=== PATIENT | male | born 1955 | race Caucasian/White ===

== ENCOUNTER → 2023-04-23 10:28 | Outpatient (REF) | payer OTHER, SELFPAY ==
[2023-04-23 10:44] LABS: % Basophils 0.7 % (0-2); % Eosinophils 1.8 % (0-6); % Immature Granulocytes 0.4 % (0-0.5); % Lymphocytes 16.2 % (20.5-51.1); % Monocytes 9.4 % (1.7-9.3); % Neutrophils 71.5 % (42.2-75.2); Absolute Basophils 0.1 10^3/uL (0-0.2); Absolute Eosinophils 0.1 10^3/uL (0-0.7); Absolute Lymphocytes 1.2 10^3/uL (1.2-3.4); Absolute Monocytes 0.7 10^3/uL (0.1-0.6); Absolute Neutrophils 5.5 10^3/uL (1.4-6.5); Hematocrit 44.6 % (39.0-52.0); Hemoglobin 15.8 g/dL (13.0-18.0); Mean Corp Hgb Conc. 35.4 g/dL (33.0-37.0); Mean Corpuscular Hgb 32.6 pg (27.0-31.0); Mean Platelet Volume 9.2 fL (7.4-10.4); Platelet Count 232 10^3/uL (130-400); Red Blood Cell Count 4.85 10^6/uL (4.70-6.10); Red Cell Dist. Width 11.8 % (11.5-14.5); White Blood Cell Count 7.7 10^3/uL (4.8-10.8)
[2023-04-23 11:27] LABS: ALT (SGPT) 99 U/L (0-50); AST (SGOT) 93 U/L (17-59); Albumin 4.7 g/dl (3.5-5.0); Alkaline Phosphatase 88 U/L (38-126); Blood Urea Nitrogen 12 mg/dl (9-20); Calcium 9.7 mg/dl (8.4-10.2); Carbon Dioxide 28 mmol/L (22-30); Chloride 97 mmol/L (98-107); Glucose 115 mg/dl (70-99); Potassium 3.8 mmol/L (3.5-5.1); Sodium 135 mmol/L (135-145); Total Bilirubin 1.3 mg/dl (0.2-1.3); Total Protein 6.9 g/dl (6.3-8.2); eGFR > 60.00
[2023-04-23 14:27] LABS: LDH 189 U/L (120-246)
== END ==
LOC: OIDL 10:28
PROVIDERS: ATTENDING PHYSICIAN Internal Medicine Hematology & Oncology
DX: C81.94 Hodgkin lymphoma, unspecified, lymph nodes of axilla and upper limb (principal)
CPT/HCPCS: 80053; 83615; 85025

== ENCOUNTER → 2023-07-29 16:13 | Outpatient (REF) | payer OTHER, SELFPAY ==
[2023-07-29 11:19] LABS: % Basophils 0.5 % (0-2); % Eosinophils 1.5 % (0-6); % Immature Granulocytes 0.5 % (0-0.5); % Lymphocytes 16.1 % (20.5-51.1); % Monocytes 10.7 % (1.7-9.3); % Neutrophils 70.7 % (42.2-75.2); Absolute Eosinophils 0.1 10^3/uL (0-0.7); Absolute Lymphocytes 1.2 10^3/uL (1.2-3.4); Absolute Monocytes 0.8 10^3/uL (0.1-0.6); Absolute Neutrophils 5.2 10^3/uL (1.4-6.5); Hematocrit 45.9 % (39.0-52.0); Hemoglobin 15.7 g/dL (13.0-18.0); Mean Corp Hgb Conc. 34.2 g/dL (33.0-37.0); Mean Corpuscular Volume 93.5 fL (80.0-94.0); Mean Platelet Volume 9.1 fL (7.4-10.4); Platelet Count 256 10^3/uL (130-400); Red Blood Cell Count 4.91 10^6/uL (4.70-6.10); Red Cell Dist. Width 12.2 % (11.5-14.5); White Blood Cell Count 7.3 10^3/uL (4.8-10.8)
[2023-07-29 12:10] LABS: ALT (SGPT) 111 U/L (0-50); AST (SGOT) 91 U/L (17-59); Alkaline Phosphatase 88 U/L (38-126); Blood Urea Nitrogen 24 mg/dl (9-20); Calcium 10.3 mg/dl (8.4-10.2); Carbon Dioxide 25 mmol/L (22-30); Chloride 99 mmol/L (98-107); Glucose 111 mg/dl (70-99); Potassium 3.9 mmol/L (3.5-5.1); Sodium 136 mmol/L (135-145); Total Bilirubin 1.2 mg/dl (0.2-1.3); Total Protein 7.4 g/dl (6.3-8.2); eGFR > 60.00
[2023-07-29 12:35] LABS: LDH 186 U/L (120-246)
== END ==
LOC: OIDL 16:13
PROVIDERS: ATTENDING PHYSICIAN Internal Medicine Hematology & Oncology
DX: C81.94 Hodgkin lymphoma, unspecified, lymph nodes of axilla and upper limb (principal)
CPT/HCPCS: 80053; 83615; 85025

== ENCOUNTER 2023-09-13 19:55 | Emergency (ER) | payer OTHER, MEDICARE, SELFPAY ==
[2023-09-13 20:01] VITALS: BP 190/106
[2023-09-13 20:46] LABS: Lactic Acid 2.7 mmol/L (0.7-2.0)
[2023-09-13 20:47] LABS: ALT (SGPT) 45 U/L (0-50); AST (SGOT) 84 U/L (17-59); Albumin 4.5 g/dl (3.5-5.0); Alkaline Phosphatase 85 U/L (38-126); Blood Urea Nitrogen 20 mg/dl (9-20); Calcium 9.2 mg/dl (8.4-10.2); Carbon Dioxide 30 mmol/L (22-30); Chloride 88 mmol/L (98-107); Creatine Phosphokinase 175 U/L (55-170); Glucose 154 mg/dl (70-99); Potassium 3.7 mmol/L (3.5-5.1); Sodium 127 mmol/L (135-145); Total Bilirubin 2.2 mg/dl (0.2-1.3); Total Protein 6.8 g/dl (6.3-8.2); eGFR > 60.00
[2023-09-13 20:58] LABS: % Basophils 0.5 % (0-2); % Eosinophils 2.7 % (0-6); % Immature Granulocytes 0.6 % (0-0.5); % Lymphocytes 17.2 % (20.5-51.1); % Monocytes 17.7 % (1.7-9.3); % Neutrophils 61.3 % (42.2-75.2); Absolute Eosinophils 0.2 10^3/uL (0-0.7); Absolute Immature Granulocytes 0.1 10^3/uL (0-0.05); Absolute Lymphocytes 1.4 10^3/uL (1.2-3.4); Absolute Monocytes 1.4 10^3/uL (0.1-0.6); Hematocrit 40.4 % (39.0-52.0); Hemoglobin 14.6 g/dL (13.0-18.0); Mean Corp Hgb Conc. 36.1 g/dL (33.0-37.0); Mean Corpuscular Hgb 31.9 pg (27.0-31.0); Mean Corpuscular Volume 88.2 fL (80.0-94.0); Nucleated Red Blood Cells % 0 % (-); Red Blood Cell Count 4.58 10^6/uL (4.70-6.10); Red Cell Dist. Width 12.3 % (11.5-14.5); White Blood Cell Count 8.1 10^3/uL (4.8-10.8)
[2023-09-13 21:04] VITALS: BP 160/49; BMI 34.2
[2023-09-13 21:08] LABS: Mean Platelet Volume 10.7 fL (7.4-10.4); Platelet Count 96 10^3/uL (130-400)
[2023-09-13] MEDS: NSS 1000 IV (22:12)
[2023-09-13] MEDS: TYLENOL 500 MG PO (22:13)
[2023-09-13 23:30] VITALS: BP 146/81
[2023-09-13 23:49] LABS: Lactic Acid 1.1 mmol/L (0.7-2.0)
--- NOTE | 2023-09-14 00:06 | ED.GENMED ---
History of Present Illness
General
Chief Complaint: Fever
Source: patient and spouse
Exam Limitations: none
Time Seen by Provider: 09/13/23 21:35
Nursing documentation reviewed up to this point in time: agreed with
History of Present Illness
History of Present Illness:
68-year-old male past medical history of hypertension hyperlipidemia presenting to the emergency department today with concerns of fever lightheadedness after playing music for multiple hours in the sun today had a high temperature at home felt very
sick able to drink fluids but then presented to the ER due to ongoing symptoms. Denies any specific chest pain shortness of breath has had significant improvement of symptoms since arrival to the ER.
Past History
Past History
ED Past Medical History: HTN and Hypercholesterolemia
ED Past Surgical History: Other ([place] teeth)
Social History
Tobacco: Non-smoker
Alcohol: None
Drug: None
Personal:
Living: with family
Employment: Employed
Review of Systems
Review of Systems
Allergies reviewed?: Yes
All Other Systems: ROS reviewed and negative except as documented in HPI and ROS
Phy Exam
Physical Exam
Physical Exam:
GENERAL: Alert , in no apparent distress
EYE: pupils equal and reactive
NECK: Supple, no significant adenopathy.
ENT: face red in color o/p clr, mmm.
CARDIAC: Regular rate and rhythm .
LUNGS: Clear breath sounds bilaterally, no acute respiratory distress, no wheezes/rales/rhonchi
ABDOMEN: Soft, without focal tenderness, no r/g, no cvat
NEUROLOGICAL: Alert and oriented, no focal neuro deficits
SKIN: Warm and dry, skin intact.
MUSCULOSKELETAL: No edema, well perfused.
PSYCH: Normal and appropriate interaction.
Course
Orders/Labs/Results
Orders:
Orders
09/13/23 20:09
Electrocardiogram (*1) Urgent
Reason for Study: Fatigue / Weakness
Cardiology Consult: Indira Colon
09/13/23 20:10
EKG- Treatment ONCE
09/13/23 20:20
CPK [Creatine Phosphokinase] Urgent
Complete Blood Count/With Diff Urgent
Comprehensive Metabolic Panel Urgent
Lactic Acid Urgent
09/13/23 21:41
0.9% Sodium Chloride 1000 ml [Nss] 1,000 ml IV BOLUS
Acetaminophen [Tylenol] 500 mg PO NOW STA
09/13/23 22:31
Vital Signs- Treatment ONCE
Frequency: Once
09/13/23 23:26
Lactic Acid Urgent
09/14/23 00:29
Comprehensive Metabolic Panel Routine
Comment: REDRAW
Abnormal Lab Results
09/13/23
20:20
RBC 4.58 L 10^6/uL
(4.70-6.10)
MCH 31.9 H pg
(27.0-31.0)
Plt Count 96 L 10^3/uL
(130-400)
MPV 10.7 H fL
(7.4-10.4)
Abs Immat Gran (auto) 0.1 H 10^3/uL
(0-0.05)
Absolute Monos (auto) 1.4 H 10^3/uL
(0.1-0.6)
Immature Gran % 0.6 H %
(0-0.5)
Lymphocytes % 17.2 L %
(20.5-51.1)
Monocytes % 17.7 H %
(1.7-9.3)
Sodium 127 L mmol/L
(135-145)
Chloride 88 L mmol/L
(98-107)
Glucose 154 H mg/dl
(70-99)
Lactic Acid 2.7 H mmol/L
(0.7-2.0)
Total Bilirubin 2.2 H mg/dl
(0.2-1.3)
AST 84 H U/L
(17-59)
Creatine Kinase 175 H U/L
(55-170)
09/13/23 20:20
Vital Signs
Initial and Last Documented VS:
Initial Vital Signs
Temp Pulse Resp BP Pulse Ox
103.2 F H 103 20 190/106 97
09/13/23 20:01 09/13/23 20:01 09/13/23 20:01 09/13/23 20:01 09/13/23 20:01
Last Documented Vital Signs
Temp Pulse Resp BP Pulse Ox
100.3 F 82 18 146/81 100
09/13/23 23:30 09/13/23 23:30 09/13/23 23:30 09/13/23 23:30 09/13/23 23:30
MDM/Problems Addressed
MDM/Problems Addressed:
68-year-old male presenting to the emergency department today with concerns of hypothermia at home. Improving here. This was after being outside for multiple hours with lack of significant hydration. Eventually consistent with heat related
illness. Started on IV fluids here was found to have elevated BUN to creatinine ratio as well as a low sodium level. Unable to repeat the labs multiple hemolyzed samples at the lab. Lactic acid improved. Patient lives that symptoms are fully
resolved and temperature is now normal patient has a normal heart rate. Considering this patient does not appear to be significantly improved from previous he related illness. Patient does appear stable for discharge patient was advised for very
close follow-up for repeated sodium level return precautions were given.
*Critical Care Note
Total Time (30-74mins, 75-104mins- exclusive of procedures): Not Applicable
ED Attending Note
-
Portions of this chart may have been created with voice recognition software.� Occasional wrong word or��sound alike� substitutions may have occurred due to the inherent limitations of voice recognition software.
Discharge Plan
Departure
Patient Disposition: Home (Routine Discharge)
Date of Disposition: 09/14/23
Time of Disposition: 00:53
Patient with high blood pressure during this ER visit?: No
Condition: Good
Covid-19: Not Applicable
Discharge Problem:
Acute hyponatremia, Hyperthermia
Instructions: Heat Exhaustion and Heat Stroke (DC)
Prescriptions:
No Action
atorvastatin 20 mg Tablet
20 mg PO DAILY
labetalol 100 mg Tablet
100 mg PO DAILY
multivitamin Tablet
1 tab PO DAILY
acidophilus-pectin, citrus [Acidophilus Probiotic] 100 million cell-10 mg Capsule
1 cap PO DAILY
Referrals:
Emy Galicia, DO [Family Provider] -
Activity Restrictions/Additional Instructions:
You came to the emergency department today with concerns of elevated temperature and additional symptoms. This was likely heat related illness that seemed to resolve here in the ER with IV fluids and time. You additionally found to a low sodium
level a low chloride level and slightly low platelet count 96. It is important to follow-up for repeated labs to ensure this is not chronic. Please follow close with the primary care doctor within 1 to 2 weeks. Return to the emergency department
for any worsening, new or concerning symptoms.
Interventions
Interventions:
*Risk Screen - Suicide Last Done: 09/13/23 20:01
*General Assessment Last Done: 09/13/23 20:01
*Neglect/Abuse Screening Last Done: 09/13/23 20:01
ED- Fall Risk Assessment Last Done: 09/13/23 20:01
*ED COVID-19 Vaccine History Last Done: 09/13/23 20:01
ED- Neurological Assessment Last Done: 09/13/23 21:05
ED-Skin Assessment Last Done: 09/13/23 21:05
Discharge Date and Time
Print Language: PASHTO
== END 2023-09-14 01:12 | disposition home or self-care (01) ==
LOC: EMR 19:55
PROVIDERS: Physician Assistant; Student in an Organized Health Care Education/Training Program; EMERGENCY PHYSICIAN Student in an Organized Health Care Education/Training Program; FAMILY PHYSICIAN Family Medicine
DX: R50.9 Fever, unspecified (principal); R42 Dizziness and giddiness; R53.1 Weakness; E87.1 Hypo-osmolality and hyponatremia; R53.83 Other fatigue; R94.4 Abnormal results of kidney function studies; T73.2XXA Exhaustion due to exposure, initial encounter; X32.XXXA Exposure to sunlight, initial encounter; I10 Essential (primary) hypertension; E78.00 Pure hypercholesterolemia, unspecified; R01.1 Cardiac murmur, unspecified; M19.90 Unspecified osteoarthritis, unspecified site; Z85.71 Personal history of Hodgkin lymphoma
CPT/HCPCS: 99284; 96360; 80053; 82550; 83605; 85025; 93005

== ENCOUNTER 2023-09-18 12:08 | Inpatient (IN) | payer OTHER, MEDICARE, SELFPAY ==
[2023-09-18] VITALS (9 sets, daily range): BP systolic 89–166; BP diastolic 56–103; BMI 34.8
--- NOTE | 2023-09-18 09:45 | ED.GENMED ---
History of Present Illness
<Shanell Hurtado PA-C - Last Filed: 09/18/23 16:14>
General
Chief Complaint: Fever
Source: patient
Exam Limitations: none
Time Seen by Provider: 09/18/23 09:31
Nursing documentation reviewed up to this point in time: agreed with
History of Present Illness
History of Present Illness:
68 y/o M
h/o HTN, HLD, hodgkins lymphoma
here with fever x 5 days
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
he was thought to have heat exhaustion
pt was also hyponatremic 127
he was hydrated and improved
went home and about 1 hour later developed temp 105.
he has been using tylemol every6 hours during the ay for fevers
he has no other symptoms of headache, rash, neck stiffness,cough, cp, sob, abdominal pain, nausea, vomiting, diarrhea,
but he did notice blood tinged urine
no rectal pain/pressure
no h/o prostate infection
last fever this am, took tylenl 8 am 500 mg
Past History
<Shanell Hurtado PA-C - Last Filed: 09/18/23 16:14>
Past History
ED Past Medical History: HTN and Hypercholesterolemia
ED Past Surgical History: Other ([place] teeth)
Social History
Tobacco: Non-smoker
Alcohol: None
Drug: None
Personal:
Living: with family
Employment: Employed
Phy Exam
<Shanell Hurtado PA-C - Last Filed: 09/18/23 16:14>
Physical Exam
Physical Exam:
GENERAL: Alert ,, nontoxic-appearing but profusely diaphoretic
HEAD: NCAT
EYE: pupils equal and reactive, no nystagmus, minimal photophobia
NECK: Supple,full rom, nontender
ENT: o/p clr, mmm.
CARDIAC: Regular rate and rhythm . no edema
LUNGS: Clear breath sounds bilaterally, no acute respiratory distress, no wheezes/rales/rhonchi
ABDOMEN: Soft, without focal tenderness, no r/g, no cvat
NEUROLOGICAL: Alert and orientedx 4, cn intact, no facial asymmetry, 5/5 strength in UE/LE, sensation intact, romberg neg,
SKIN: Warm, diaphoretic
MUSCULOSKELETAL: No edema, well perfused.
PSYCH: Normal and appropriate interaction.
Course
<Shanell Hurtado PA-C - Last Filed: 09/18/23 16:14>
Orders/Labs/Results
Orders:
Orders
09/18/23 09:32
Electrocardiogram (*1) Urgent
Reason for Study: Other
Other Reason for Exam: sepsis
Cardiac Monitoring- Treatment ONCE
EKG- Treatment ONCE
0.9% Sodium Chloride 1000 ml [Nss] 1,000 ml IV BOLUS
09/18/23 09:42
Acetaminophen [Tylenol] 500 mg PO NOW STA
CR Chest - 2 Views Urgent
Comment:
Reason For Exam: fever x 5 days
09/18/23 09:52
COVID-19 Antigen Urgent
Source: Nasal Swab
Complete Blood Count/With Diff Urgent
Comprehensive Metabolic Panel Urgent
Lactic Acid Q4H
Comment: CANCEL 2nd LACTIC ACID IF 1st LACTIC ACID IS LESS THAN 2
Lipase Urgent
Manual Differential Urgent
Serum Osmolality Urgent
Blood Culture Urgent
AMELIA Source: Blood/Venous
Specimen Description:
Influenza A+B Rapid Molecular Urgent
AMELIA Source: Nasal Swab
Specimen Description:
09/18/23 Lunch
Regular
At Your Request: Full Participation
Does patient need a safe tray?: No
09/18/23 11:03
Add On- LAB Urgent
Tests Added?: serum osmolality
09/18/23 11:04
Piperacillin/Tazo 4.5 Gram [Zosyn] 4.5 gram in 100 ml IV NOW
09/18/23 11:40
Admit/Transfer Patient As Directed
Co-Sign Provider:
Level of Care: Inpatient admission
Assign to:: Telemetry
Physician / Group: errol garcia
Diagnosis: Sepsis
Reason for Telemetry: Other
Other Reason for Telemetry: Sepsis
Date to Stop Telemetry: 09/20/23
Time to Stop Telemetry: 11:00
Reason for Hospitalization: Sepsis
Expected length of stay greater than two midnights?: Yes
ELOS- Estimated Length of Stay in days: 2
I certify the patient meets the requirements for IP care: Yes
PRN Pain Medication Management As Directed
May give lesser potent ordered pain med per pt: Yes
preference::
Protocol:: Medication orders for pain may be administered in a
manner that supports deferring to patient preference
when the pt is:
- Requesting an ordered lesser potent pain medication.
Least to most potent pain medications are defined
as: acetaminophen < NSAID < tramadol < opioids
(morphine, oxycodone, hydromorphone).
- Requesting a lesser dose of the same medication IF
ORDERED.
- Requesting a less intrusive route of administration
if both routes are prescribed by the provider (PO <
IV).
09/18/23 11:42
Code Status As Directed
Resuscitation Status: Full Code
09/18/23 12:46
Osmolality, Random Urine Urgent
Date Specimen was Collected: 09/18/23
Time Specimen was Collected: 11:11
Urinalysis Reflex To Culture Urgent
Date Specimen was Collected: 09/18/23
Time Specimen was Collected: 11:11
Urine Microscopic Reflex Cult Urgent
Urine Sodium Urgent
Date Specimen was Collected: 09/18/23
Time Specimen was Collected: 11:11
Urine Culture Urgent
AMELIA Source: U
Specimen Description:
Date Specimen was Collected: 09/18/23
Time Specimen was Collected: 11:11
09/18/23 13:45
Lactic Acid Q4H
Comment: CANCEL 2nd LACTIC ACID IF 1st LACTIC ACID IS LESS THAN 2
09/18/23 13:51
Acetaminophen [Tylenol] 500 mg PO Q8HPRN PRN
Bisacodyl [Dulcolax] 10 mg RECTAL [id number] PRN
Docusate W/Senna [Senokot-S] 1 tablet PO BIDPRN PRN
Polyethylene Glycol Powder [Miralax] 17 grams PO DAILYPRN PRN
09/18/23 13:51
INFECTIOUS DISEASE CONSULT Routine
Consulting Provider: Ryan Stover
Was physician already notified: Yes
Reason for consult: Fever, unclear source
NEPHROLOGY CONSULT Routine
Consulting Provider: Moncho Field
Was physician already notified: Yes
Reason for consult: Hyponatremia
Activity As Directed
Activity Level: Out of Bed-Early Mobility
Vital Signs As Directed
Frequency: Per unit guidelines
DX Deep Vein Thrombosis Video Routine
09/18/23 18:00
Enoxaparin Sodium [Lovenox] 40 mg SC QPM
09/18/23 20:00
Piperacillin/Tazo 3.375 Gram [Zosyn] 3.375 gram in 50 ml IV Q6H
09/19/23 06:00
Basic Metabolic Panel IN AM
Complete Blood Count/No Diff IN AM
09/19/23 08:00
Labetalol [Trandate] 100 mg PO DAILY
Lisinopril [Zestril] 20 mg PO DAILY
09/20/23 11:00
DC Protocol for Telemetry ONCE
Abnormal Lab Results
09/18/23
09:52
RBC 4.14 L 10^6/uL
(4.70-6.10)
Hct 35.6 L %
(39.0-52.0)
MCH 31.6 H pg
(27.0-31.0)
Plt Count 61 L D 10^3/uL
(130-400)
Band Neutrophils 14 H %
(0-3)
Lymphocytes (Manual) 14 L %
(20-51)
Monocytes (Manual) 18 H %
(2-9)
Sodium 119 L* mmol/L
(135-145)
Potassium 3.2 L mmol/L
(3.5-5.1)
Chloride 81 L mmol/L
(98-107)
Carbon Dioxide 33 H mmol/L
(22-30)
BUN 23 H mg/dl
(9-20)
Glucose 151 H mg/dl
(70-99)
Serum Osmolality 256 L mOsm/kg
(275-300)
Calcium 8.2 L mg/dl
(8.4-10.2)
Total Bilirubin 3.3 H mg/dl
(0.2-1.3)
AST 93 H U/L
(17-59)
Total Protein 5.5 L g/dl
(6.3-8.2)
Albumin 3.2 L g/dl
(3.5-5.0)
09/18/23 09:52
09/18/23 09:52
Vital Signs
Initial and Last Documented VS:
Initial Vital Signs
Temp Pulse Resp BP Pulse Ox
102.6 F H 107 22 89/56 96
09/18/23 09:25 09/18/23 09:25 09/18/23 09:25 09/18/23 09:25 09/18/23 09:25
Last Documented Vital Signs
Temp Pulse Resp BP Pulse Ox
98.0 F 82 18 143/103 100
09/18/23 15:13 09/18/23 15:13 09/18/23 15:13 09/18/23 15:13 09/18/23 15:13
<Leroy Howard, DO - Last Filed: 09/18/23 11:07>
Orders/Labs/Results
Orders:
Orders
09/18/23 09:32
Electrocardiogram (*1) Urgent
Reason for Study: Other
Other Reason for Exam: sepsis
Cardiac Monitoring- Treatment ONCE
EKG- Treatment ONCE
0.9% Sodium Chloride 1000 ml [Nss] 1,000 ml IV BOLUS
09/18/23 09:42
Acetaminophen [Tylenol] 500 mg PO NOW STA
CR Chest - 2 Views Urgent
Comment:
Reason For Exam: fever x 5 days
09/18/23 09:52
COVID-19 Antigen Urgent
Source: Nasal Swab
Complete Blood Count/With Diff Urgent
Comprehensive Metabolic Panel Urgent
Lactic Acid Q4H
Comment: CANCEL 2nd LACTIC ACID IF 1st LACTIC ACID IS LESS THAN 2
Lipase Urgent
Manual Differential Urgent
Serum Osmolality Urgent
Blood Culture Urgent
AMELIA Source: Blood/Venous
Specimen Description:
Influenza A+B Rapid Molecular Urgent
AMELIA Source: Nasal Swab
Specimen Description:
09/18/23 Lunch
Regular
At Your Request: Full Participation
Does patient need a safe tray?: No
09/18/23 11:03
Add On- LAB Urgent
Tests Added?: serum osmolality
09/18/23 11:04
Piperacillin/Tazo 4.5 Gram [Zosyn] 4.5 gram in 100 ml IV NOW
09/18/23 11:40
Admit/Transfer Patient As Directed
Co-Sign Provider:
Level of Care: Inpatient admission
Assign to:: Telemetry
Physician / Group: errol garcia
Diagnosis: Sepsis
Reason for Telemetry: Other
Other Reason for Telemetry: Sepsis
Date to Stop Telemetry: 09/20/23
Time to Stop Telemetry: 11:00
Reason for Hospitalization: Sepsis
Expected length of stay greater than two midnights?: Yes
ELOS- Estimated Length of Stay in days: 2
I certify the patient meets the requirements for IP care: Yes
PRN Pain Medication Management As Directed
May give lesser potent ordered pain med per pt: Yes
preference::
Protocol:: Medication orders for pain may be administered in a
manner that supports deferring to patient preference
when the pt is:
- Requesting an ordered lesser potent pain medication.
Least to most potent pain medications are defined
as: acetaminophen < NSAID < tramadol < opioids
(morphine, oxycodone, hydromorphone).
- Requesting a lesser dose of the same medication IF
ORDERED.
- Requesting a less intrusive route of administration
if both routes are prescribed by the provider (PO <
IV).
09/18/23 11:42
Code Status As Directed
Resuscitation Status: Full Code
09/18/23 12:46
Osmolality, Random Urine Urgent
Date Specimen was Collected: 09/18/23
Time Specimen was Collected: 11:11
Urinalysis Reflex To Culture Urgent
Date Specimen was Collected: 09/18/23
Time Specimen was Collected: 11:11
Urine Microscopic Reflex Cult Urgent
Urine Sodium Urgent
Date Specimen was Collected: 09/18/23
Time Specimen was Collected: 11:11
Urine Culture Urgent
AMELIA Source: U
Specimen Description:
Date Specimen was Collected: 09/18/23
Time Specimen was Collected: 11:11
09/18/23 13:45
Lactic Acid Q4H
Comment: CANCEL 2nd LACTIC ACID IF 1st LACTIC ACID IS LESS THAN 2
09/18/23 13:51
Acetaminophen [Tylenol] 500 mg PO Q8HPRN PRN
Bisacodyl [Dulcolax] 10 mg RECTAL [id number] PRN
Docusate W/Senna [Senokot-S] 1 tablet PO BIDPRN PRN
Polyethylene Glycol Powder [Miralax] 17 grams PO DAILYPRN PRN
09/18/23 13:51
INFECTIOUS DISEASE CONSULT Routine
Consulting Provider: Ryan Stover
Was physician already notified: Yes
Reason for consult: Fever, unclear source
NEPHROLOGY CONSULT Routine
Consulting Provider: Moncho Field
Was physician already notified: Yes
Reason for consult: Hyponatremia
Activity As Directed
Activity Level: Out of Bed-Early Mobility
Vital Signs As Directed
Frequency: Per unit guidelines
DX Deep Vein Thrombosis Video Routine
09/18/23 18:00
Enoxaparin Sodium [Lovenox] 40 mg SC QPM
09/18/23 20:00
Piperacillin/Tazo 3.375 Gram [Zosyn] 3.375 gram in 50 ml IV Q6H
09/19/23 06:00
Basic Metabolic Panel IN AM
Complete Blood Count/No Diff IN AM
09/19/23 08:00
Labetalol [Trandate] 100 mg PO DAILY
Lisinopril [Zestril] 20 mg PO DAILY
09/20/23 11:00
DC Protocol for Telemetry ONCE
Abnormal Lab Results
09/18/23
09:52
RBC 4.14 L 10^6/uL
(4.70-6.10)
Hct 35.6 L %
(39.0-52.0)
MCH 31.6 H pg
(27.0-31.0)
Plt Count 61 L D 10^3/uL
(130-400)
Band Neutrophils 14 H %
(0-3)
Lymphocytes (Manual) 14 L %
(20-51)
Monocytes (Manual) 18 H %
(2-9)
Sodium 119 L* mmol/L
(135-145)
Potassium 3.2 L mmol/L
(3.5-5.1)
Chloride 81 L mmol/L
(98-107)
Carbon Dioxide 33 H mmol/L
(22-30)
BUN 23 H mg/dl
(9-20)
Glucose 151 H mg/dl
(70-99)
Serum Osmolality 256 L mOsm/kg
(275-300)
Calcium 8.2 L mg/dl
(8.4-10.2)
Total Bilirubin 3.3 H mg/dl
(0.2-1.3)
AST 93 H U/L
(17-59)
Total Protein 5.5 L g/dl
(6.3-8.2)
Albumin 3.2 L g/dl
(3.5-5.0)
09/18/23 09:52
09/18/23 09:52
Vital Signs
Initial and Last Documented VS:
Initial Vital Signs
Temp Pulse Resp BP Pulse Ox
102.6 F H 107 22 89/56 96
09/18/23 09:25 09/18/23 09:25 09/18/23 09:25 09/18/23 09:25 09/18/23 09:25
Last Documented Vital Signs
Temp Pulse Resp BP Pulse Ox
98.0 F 82 18 143/103 100
09/18/23 15:13 09/18/23 15:13 09/18/23 15:13 09/18/23 15:13 09/18/23 15:13
<Shanell Hurtado PA-C - Last Filed: 09/18/23 16:14>
MDM/Problems Addressed
Differential Diagnosis Includes:
sepsis, fever, hyponbatremia, uti, hematuria
MDM/Problems Addressed:
alexy younger jr, htn (hctz), hld, hodgkins in remission
fever x 5 days, no other sypmtoms (maybe some painless hematuria reported at home)
seen 5 days ago for suspected heat exhaustion before fever started, sodium 127 then;
was initially hypotensive in traige but has been 110/60 here, febrile; unclear source; getting abd US for elev bili (no belly pain) and ua; empiric zosyn after ua;
sodium 119; dr. field aware; will see pt to make rec for hyponatremai
<Shanell Hurtado PA-C - Last Filed: 09/18/23 16:14>
*Critical Care Note
Total Time (30-74mins, 75-104mins- exclusive of procedures): Not Applicable
ED Attending Note
<Shanell Hurtado PA-C - Last Filed: 09/18/23 16:14>
-
Portions of this chart may have been created with voice recognition software.� Occasional wrong word or��sound alike� substitutions may have occurred due to the inherent limitations of voice recognition software.
<Leroy Howard, - Last Filed: 09/18/23 11:07>
ED Attending Note
Patient seen and examined by attending physician: Yes
ED Attending Note:
I have reviewed and agree with history and treatment plan by Zeynep Hurtado. My exam revealed
Physical Exam
General: Temperature 102.6
Neck: supple. no meningeal signs. normal posterior pharynx
Heart: s1/s2 regular rate and rhythm, no murmur. equal radial
pulses.
HEENT: Pupils equal round reactive to light, EOMI, sclera anicteric
Lungs: no acute respiratory distress. clear bilaterally
Abdomen: normal bowel sounds. not tender. no CVAT
Neuro: alert and oriented. no focal neurological deficits cranial nerves II through XII intact
Skin: no rash
Psychiatric: well kept. interactive and cooperative
Extremities: no edema. no calf tenderness. negative homans. good distal pulses
68-year-old male with fever, hyperbilirubinemia, hyponatremia. Unclear etiology. Ultrasound pending. Will admit to hospitalist, and give empiric dose of Zosyn.
Discharge Plan
Departure
Patient Disposition: Admit
Date of Disposition: 09/18/23
Time of Disposition: 11:03
Admit to: Telemetry
Presentation/result/management discussed w/ accepting MD/DO: Hospitalist
Condition: Fair
Covid-19: Negative COVID-19
Discharge Problem:
Acute hyponatremia, Sepsis
Interventions
Interventions:
*Risk Screen - Suicide Last Done: 09/18/23 14:20
*General Assessment Last Done: 09/18/23 09:25
*Neglect/Abuse Screening Last Done: 09/18/23 09:25
ED- Fall Risk Assessment Last Done: 09/18/23 13:58
*ED COVID-19 Vaccine History Last Done: 09/18/23 14:20
*Nursing Disposition Last Done: 09/18/23 13:58
ED- Neurological Assessment Last Done: 09/18/23 10:39
ED-Skin Assessment Last Done: 09/18/23 10:40
Discharge Date and Time
Discharge Date/Time: 09/18/23 13:59
[2023-09-18] MEDS: TYLENOL 500 MG PO ×2 (09:57→15:36)
[2023-09-18 10:19] LABS: Lactic Acid 1.9 mmol/L (0.7-2.0)
[2023-09-18] MEDS: NSS 1000 IV (10:20)
[2023-09-18 10:21] LABS: Hematocrit 35.6 % (39.0-52.0); Hemoglobin 13.1 g/dL (13.0-18.0); Mean Corp Hgb Conc. 36.8 g/dL (33.0-37.0); Mean Corpuscular Hgb 31.6 pg (27.0-31.0); Red Blood Cell Count 4.14 10^6/uL (4.70-6.10); Red Cell Dist. Width 13.3 % (11.5-14.5); White Blood Cell Count 6.6 10^3/uL (4.8-10.8)
[2023-09-18 10:35] LABS: ALT (SGPT) 38 U/L (0-50); AST (SGOT) 93 U/L (17-59); Albumin 3.2 g/dl (3.5-5.0); Alkaline Phosphatase 72 U/L (38-126); Blood Urea Nitrogen 23 mg/dl (9-20); Calcium 8.2 mg/dl (8.4-10.2); Carbon Dioxide 33 mmol/L (22-30); Chloride 81 mmol/L (98-107); Estimated Creatinine Clearance 118 ml/min; Glucose 151 mg/dl (70-99); Lipase 51 U/L (23-300); Potassium 3.2 mmol/L (3.5-5.1); Sodium 119 mmol/L (135-145); Total Bilirubin 3.3 mg/dl (0.2-1.3); Total Protein 5.5 g/dl (6.3-8.2); eGFR > 60.00
[2023-09-18 10:41] LABS: COVID-19 Antigen Negative (Negative)
[2023-09-18 11:39] LABS: Platelet Count 61 10^3/uL (130-400)
[2023-09-18 11:40] LABS: Absolute Neutrophils -Man Diff 4.4 10^3/uL (1.4-6.5); Band Neutrophils 14 % (0-3); Lymphocytes 14 % (20-51); Monocytes 18 % (2-9); Normal RBC Morphology Yes; Platelets Checked Yes; Segmented Neutrophils 54 % (42-75); Total Cells Counted 100
--- NOTE | 2023-09-18 11:53 | HPS.HSE ---
Family Physician
-
Family Physician: Emy Galicia
Chief Complaint
-
Fever
History of Present Illness
Patient is a pleasant 68 years old with history of Hodgkin lymphoma, hypertension, hyperlipidemia who came to the ER with persistent fever, patient was seen here 5 days ago and he had fever but believed to have heat exhaustion, sodium level was 127
back on September 12, presented today with persistent fever, found to have sodium level of 119.
Patient seen and examined at bedside, denies any chest pain or shortness of breath, no coughing, no abdominal pain, no nausea, no vomiting, no diarrhea or constipation.
Patient with history of Lymphocyte predominant Hodgkin lymphoma currently on remission, not currently on any treatment, last PET scan 1 year ago was normal.
Patient found to have elevated bilirubin, ultrasound abdomen pending.
Patient be admitted under hospitalist service
Medical History
Past Medical History
Past Medical History: Reports Cancer, HTN and Hypercholesterolemia
Past Surgical History: Reports Other ([place] teeth)
Social History
Tobacco: Non-smoker
Alcohol: Occasional (1 glass wine with dinner)
Personal:
Living: With Family ( Sulema)
Employment: Employed
Family History
Family History: Not pertinent
Allergies / Home Medications
Allergies reflects when Allergies were last updated in [email or web address].
Home Medications with original date entered in [email or web address]
Allergy/Medication List:
Allergies
Allergy/AdvReac Type Severity Reaction Status Date / Time
No Known Allergies Allergy Unverified 09/15/21 14:58
Home Medications
atorvastatin 20 mg tablet 20 mg PO DAILY 09/15/21
hydrochlorothiazide 25 mg tablet 25 mg PO DAILY 09/15/21
labetalol 100 mg tablet 100 mg PO DAILY 09/15/21
lisinopril 20 mg tablet 20 mg PO DAILY 09/15/21
Review of Systems
-
A 12 point ROS was completed and negative except as noted: Yes
Constitutional: Reports Fever; Denies Weight Gain, Weight Loss, Fatigue or Sleep Disturbance
EENT: Denies Tearing, Sore Throat, Mouth Pain, Mouth Swelling or Runny Nose
Respiratory: Denies Cough, Hemoptysis or Trouble Breathing
Cardiac: Denies Chest Pain, Diaphoresis, Palpitations or Syncope
Abdomen/GI: Denies Abdominal Pain, Nausea, Vomiting, Diarrhea, Constipated, Bloody Stools or Black Stools
: Reports Bleeding (Hematuria-pink urine); Denies Dysuria, Frequency, Flank Pain, Incontinence, Difficulty Voiding, Urgency or Dark Urine
Musculoskeletal: Denies Joint Pain, Joint Swelling, Muscle Pain, Muscle Stiffness or Edema
Skin: Denies Itching or Rash
Neurological: Denies Dizzy, Headache, Weakness or Numbness
Endocrine: Denies Polyuria, Polydipsia or Temp Intolerance
Hematologic/Lymphatic: Denies Bleeding, Swollen Glands or Bruising
Psych: Reports Calm; Denies Depression, Anxiety or Panic Disorder
Physical Exam
Vital Signs
Vital Signs
Temp Pulse Resp BP Pulse Ox
102.6 F H 85 25 110/69 96
09/18/23 09:25 09/18/23 10:00 09/18/23 10:00 09/18/23 10:11 09/18/23 10:11
Physical Exam
General: Well Developed, Well Nourished, No Apparent Distress, Comfortable and Good Appetite; No Pain, Chills or Sweats
HEENT: NormoCephalic, Moist mucous membranes, Atraumatic, Good Dentition, PERRLA, Nose Appears Normal and Ears Appear Normal
Respiratory: Clear
Cardiac: S1/S2 and Regular Rhythm
Breast: Deferred by me
GI: Soft, Non Tender, Non Distended and Normal Bowel Sounds
Genito-urinary: Deferred by me
Musculoskeletal: No Clubbing, No Cyanosis and No Edema
Skin: Warm; No Rash, Jaundice, Ulcers, Lesions or Decubitus Ulcers
Neuro: Awake, Alert, Oriented, AO x 3, No Motor Deficits, Nonfocal/grossly intact and Cranial Nerves Intact
Hematologic/Lymphatic: No Lymphadenopathy
Psych: Calm
Laboratory Results
-
09/18/23 09:52
09/18/23 09:52
Laboratory Results
Lactic Acid 1.9 mmol/L (0.7-2.0) 09/18/23 09:52
Total Bilirubin 3.3 mg/dl (0.2-1.3) H 09/18/23 09:52
AST 93 U/L (17-59) H 09/18/23 09:52
ALT 38 U/L (0-50) 09/18/23 09:52
Alkaline Phosphatase 72 U/L (38-126) 09/18/23 09:52
Lipase 51 U/L (23-300) 09/18/23 09:52
Data Reviewed
-
Diagnostic Radiology: Report Reviewed by me
CT Scan: Report Reviewed by me
Medical Tests (Nuc Med, Echo, EKG etc): Report Reviewed by me
Lab Data: Labs Reviewed by me
Old Records: Reviewed
Impression/Plan
-
IMPRESSION:
68 years old male with history of Hodgkin lymphoma, hypertension, hyperlipidemia came with fever and hyponatremia, sodium level 119, infectious disease and nephrology consulted.
PLAN:
Hyponatremia.
Possible secondary to polydipsia after heat exposure.
Sodium level was 127 on September 12
Currently sodium level 119.
Nephrology consulted.
Serial BMP
Pending urine studies
Fever.
Unclear source.
Blood culture pending.
Started on Zosyn in the ER, will continue.
Infectious disease consult.
history of Lymphocyte predominant Hodgkin lymphoma
Diagnosed on August 2021- (patient admitted back then with empyema, gram-negative bacteremia ,diffuse lymphadenopathy and splenomegaly)
Currently on remission, not currently on any treatment.
Follows oncology as outpatient.
History of hypertension
Continue home meds
Hold hydrochlorothiazide
Hyperlipidemia.
Hold statin
CODE STATUS: Full code
DVT prophylaxis: Lovenox
Diet: Regular diet
--- NOTE | 2023-09-18 12:25 | W.CON.NEPH ---
Consultation
-
Date/Time Consultation Requested: September 18, 2023 12 PM
Date/Time Consultation Performed: September 18, 2023 12 PM
Requesting Provider: Dr. Mullen
Performing Provider: Dr. Da Silva
Reason for Consultation: Hyponatremia
Medical History
-
Chief Complaint: Fever
History of Present Illness:
This is a 68-year-old gentleman who has hypertension on a multidrug regimen including thiazide diuretics, hyperlipidemia on statin therapy, both these issues have been well-controlled and stable over time. He also has a history of Hodgkin's
lymphoma which was diagnosed a few years ago he underwent R-CHOP and is currently in remission. His last PET scan was October of last year. In the last 5 days he had been out in the heat playing in a band and had suffered some degree of heatstroke.
He had been to the emergency room on 12 September and was noted to have mild hyponatremia 127 at that time. He was given some fluids and then released. At home he subsequently developed fevers as high as 105. He also has chills and sweats. He began
developing significant malaise and sleeping quite a bit. His oral intake has dropped down to 25% but he remained with good fluid intake at least 64 ounces per day. He also maintain his outpatient medications. Ultimately came back to the emergency
room because he was not getting any better. Here he was noted to have a sodium level of 119. His bilirubin was also noted to be elevated at 3.3. His liver tests have also been noted to be elevated since January of last year.
Past Medical History
Hodgkin's lymphoma, status post R-CHOP. No radiation
Hypertension
Hyperlipidemia
[place] teeth extraction
Social History
Tobacco: Non-Smoker
Alcohol: Occasional
Family History
Family History: Not Pertinent
Allergies / Home Medications
Allergy/AdvReac Type Severity Reaction Status Date / Time
No Known Allergies Allergy Verified 09/18/23 09:29
�Medication �Instructions �Recorded �Confirmed �Type
atorvastatin 20 mg tablet 20 mg PO DAILY High cholesterol 09/15/21 09/18/23 History
labetalol 100 mg tablet 100 mg PO DAILY Blood pressure 09/15/21 09/18/23 History
acetaminophen 500 mg tablet 500 mg PO Q8HPRN PRN mild pain 09/18/23 09/18/23 History
(Tylenol Extra Strength)
hydrochlorothiazide 25 mg tablet 25 mg PO DAILY Blood Pressure 09/18/23 09/18/23 History
ibuprofen 200 mg tablet 200 mg PO Q8HPRN PRN mild pain 09/18/23 09/18/23 History
lisinopril 20 mg tablet 20 mg PO DAILY Blood Pressure 09/18/23 09/18/23 History
therapeutic multivitamin 1 tab PO DAILY Supplement 09/18/23 09/18/23 History
Review of Systems
-
Fevers, chills, sweats, malaise, decreased appetite. No abdominal pain, no diarrhea. No issues with urine output. No pruritus. No rash.
All other systems: Negative unless noted
Physical Exam
Vital Signs
Vital Signs
Temp Pulse Resp BP Pulse Ox
102.6 F H 85 25 110/69 96
09/18/23 09:25 09/18/23 10:00 09/18/23 10:00 09/18/23 10:11 09/18/23 10:11
Lab Results
WBC 6.6 10^3/uL (4.8-10.8) 09/18/23 09:52
RBC 4.14 10^6/uL (4.70-6.10) L 09/18/23 09:52
Hgb 13.1 g/dL (13.0-18.0) 09/18/23 09:52
Hct 35.6 % (39.0-52.0) L 09/18/23 09:52
Plt Count 61 10^3/uL (130-400) L D 09/18/23 09:52
Sodium 119 mmol/L (135-145) L* 09/18/23 09:52
Potassium 3.2 mmol/L (3.5-5.1) L 09/18/23 09:52
Chloride 81 mmol/L (98-107) L 09/18/23 09:52
Carbon Dioxide 33 mmol/L (22-30) H 09/18/23 09:52
BUN 23 mg/dl (9-20) H 09/18/23:52
Creatinine 0.8 mg/dL (0.7-1.3) 09/18/23 09:52
eGFR > 60.00 09/18/23:52
Glucose 151 mg/dl (70-99) H 09/18/23:52
Calcium 8.2 mg/dl (8.4-10.2) L 09/18/23:52
Albumin 3.2 g/dl (3.5-5.0) L 09/18/23 09:52
Physical Exam
Patient is awake alert oriented and in no distress. Mood and affect were pleasant, insight and judgment were good. Pupils are equal round and reactive to light, extraocular movements are intact, sclera were anicteric. Hearing was normal, ears and
nose are intact. Oropharynx was clear. Neck was supple with trachea midline and no thyromegaly. Heart was regular rate and rhythm without rubs. Lower extremities without edema. Lungs were clear to auscultation bilaterally and with normal
excursion. Abdomen was soft, nontender, with normal active bowel sounds, and no hepatosplenomegaly. Skin was without rash and with normal turgor.
Data Reviewed
-
Radiology: Image Personally Visualized and interpreted (Chest x-ray on September 18, 2023 by my reading shows no acute disease)
Medical Tests (Nuc Med, Echo etc): Image Personally Visualized and interpreted (EKG on September 18, 2023 by my reading shows normal sinus rhythm)
Labs: Labs Reviewed by me (WBC 6.6, hemoglobin 13.1, platelets 61, sodium 119, potassium 3.2, chloride 81 bicarbonate 33, BUN 23, creatinine 0.8, bilirubin 3.3, AST 93, ALT 38, albumin 3.2)
Old Records: Reviewed (On September 13, 2023 sodium 127, bilirubin 2.2, AST 884, ALT 45, lactate 2.7. On January 22, 2023 AST 101, ALT 119)
Assessment/Plan
-
Assessment:
History of Hodgkin's lymphoma
hyponatremia
HTN
Elevated BUN and LFTs
Hypokalemia
Plan
Serial BMP
Stop hydrochlorothiazide
1 L normal saline
Replete potassium IV
Check urine studies, straight catheterization if required
Check blood cultures, urine cultures
Would check CT abdomen and pelvis
[2023-09-18] MEDS: ZOSYN 100 IV (12:54)
--- NOTE | 2023-09-18 12:58 | CON.ID ---
Consultation
-
Date/Time Consultation Requested: 09/18/23 12:01
Date/Time Consultation Performed: 09/18/23 12:58
Requesting Provider: Dr Briggs
Performing Provider: Dr Sherman
Reason for Consultation: fever without a source
Chief Complaint / Past History
Chief Complaint
fever
History of Present Illness
Mr Hale is a 68 year old male with history of hodgkins lymphoma in remission who presented here today for a 5 day history of fevers, near syncope. He first presented here 5 day ago feeling feverish and playing music in a local park for several
hours and was felt to have heat stroke; Na at that visit 127. He now represents for ongoing fevers and denies: any headache, sinus tenderness, sore throat, chest pain or shortness of breath, coughing, abdominal pain, nausea, vomiting,
dysuira/urinary urgency/frequency/suprapubic tenderness, diarrhea or constipation. No new rashes or joint pains.No known tick bite but spends a lot of time outside in grassy areas. Has a dog and a cat, no farm animals. Has had recent travel to
[place], [place], and [place]. After assessment here he was instructed to drink fluid with electrolytes and reports he did that.
Since arrival here febrile to 102.4 orally, bp stable, wbc 6.6, hgb 13, plt 61, L shift, na 119, K 3.2, cr 0.8, osmolality 256, t bili 3.3, ast 93, alt 38, alk phos 72, UA 26-30 wbc/hpf, 6-10 squamous cells, moderate bacteria, CXR: notable for
accessed port, urine culture pending, blood culture sent x1, influenza pcr negative. Currently on zosyn. ID is consulted for assistance with management
Past History
Additional Past Medical History:
HTN and Hypercholesterolemia
Additional Past Surgical History:
wisdom teeth removal
port
Allergy History:
No Known Allergies Allergy (Verified 09/18/23 09:29)
Medications Reviewed: Yes
Social History
Tobacco: Non-Smoker
Alcohol: Occasional
Personal:
Family History
Family History: Not Pertinent
Review of Systems
Review of Systems
General: Fever and Chills
All systems: All other systems were reviewed and were negative
Vital Signs
Temp Pulse Resp BP Pulse Ox
99.3 F 85 25 110/69 96
09/18/23 12:57 09/18/23 10:00 09/18/23 10:00 09/18/23 10:11 09/18/23 10:11
Physical Exam
Physical Exam
Constitutional: No Acute Distress
Cardiovascular: Regular Rate and S1/S2; Negative Murmur or Rub
Pulmonary: Clear and Symmetric; Negative Wheezes, Rales or Rhonchi
Gastrointestinal: Soft, Non Tender, Non Distended and Normal Bowel Sounds
Skin: Warm and Dry; Negative Rash or Jaundice
Lab / Diagnostic Study Results
09/18/23 09:52
Total Counted 100 09/18/23 09:52
Abs Neuts (Manual) 4.4 10^3/uL (1.4-6.5) 09/18/23 09:52
Segmented Neutrophils 54 % (42-75) 09/18/23 09:52
Band Neutrophils 14 % (0-3) H 09/18/23 09:52
Lymphocytes (Manual) 14 % (20-51) L 09/18/23 09:52
Lactic Acid 1.9 mmol/L (0.7-2.0) 09/18/23 09:52
Microbiology Results
Micro:
09/18/23 09:52 Influenza Types A & B (LON) - Final
Nasal Swab Negative for Influenza A & B, NAAT
Negative results must be combined with clinical observations
and patient history.
Nucleic Acid Amplification test (NAAT)performed on the
[employer] platform.
09/18/23 09:52 Blood Culture - Pending
Blood/Venous
Assessment / Plan
Probable Tick Born Illness
Lymphocyte predominant Hodgkin lymphoma currently on remission
- thrombocytopenia, hyponatremia, mild transaminitis most suggestive of tick born infection such as lyme, ehrlichia, anaplasma, less likely babesia without anemia
- babesia smear, serologies for: lyme, ehrlichia, anaplasma
- SIADH would be a common complication
- management per nephrology
- mild pyuria however without symptoms - could have asymptomatic bacteriuria or sterile pyuria - either of these would not require directed antibiotics
- will follow up CT a/p
- stop zosyn
- add doxycycline
- follow clinically, main barrier to discharge is management of hyponatremia, results of CT abdomen
[2023-09-18] MEDS: KCL 270 MEQ IV (13:00)
[2023-09-18 13:09] LABS: Urine Albumin 1+ (Neg - Trace); Urine Bilirubin 1+ (Negative); Urine Character Clear (Clear); Urine Color Yellow; Urine Glucose Negative (Negative); Urine Ketone Trace (Negative); Urine Leukocyte Trace (Negative); Urine Nitrite Negative (Negative); Urine Occult Blood 4+ (Negative); Urine Urobilinogen 1+ (Neg - 1+)
[2023-09-18 13:29] LABS: Urine Urothelial Cell 0-2 /LPF (FEW)
[2023-09-18 13:30] LABS: Urine Bacteria Moderate (Negative); Urine White Cell 26-30 /HPF (0-5)
[2023-09-18 13:47] LABS: Osmolality Urine 390 mOsm/kg (300-900)
[2023-09-18 13:54] LABS: Urine Sodium < 5 mmol/L (30-90)
[2023-09-18 14:15] LABS: Osmolality Serum 256 mOsm/kg (275-300)
[2023-09-18] MEDS: OMNIPAQUE 50 ML PO (14:52)
[2023-09-18] MEDS: VIBRAMYCIN 100 MG PO (17:05)
[2023-09-18] MEDS: LOVENOX 40 MG SC (17:05)
[2023-09-18] MEDS: TYLENOL 650 MG PO ×2 (18:07→22:00)
[2023-09-18] MEDS: SODIUM CHLORIDE 3% 250 IV (18:18)
[2023-09-18 22:34] LABS: Blood Urea Nitrogen 20 mg/dl (9-20); Calcium 7.8 mg/dl (8.4-10.2); Carbon Dioxide 31 mmol/L (22-30); Chloride 85 mmol/L (98-107); Estimated Creatinine Clearance > 125 ml/min; Glucose 122 mg/dl (70-99); Potassium 3.7 mmol/L (3.5-5.1); Sodium 122 mmol/L (135-145); eGFR > 60.00
--- NOTE | 2023-09-19 00:02 | PTCARENOTE ---
Received care of patient from day shift RN with 101.4 fever. Pt AAOx3, all other VS stable. Pt not due for PRN Q6 Tylenol, notified LICENSED OCCUPATIONAL THERAPIST Dione Sutherland who changed frequency of tylenol to Q4. Pt packed with ice. Pt remains with high fever despite
tylenol and ice. Pt in no distress, denies discomfort. Continuing to frequently monitor temps, LICENSED OCCUPATIONAL THERAPIST aware.
[2023-09-19] MEDS: TYLENOL 650 MG PO ×3 (03:05→20:08)
[2023-09-19 03:16] VITALS: BP 161/99
[2023-09-19 05:58] LABS: ALT (SGPT) 35 U/L (0-50); AST (SGOT) 97 U/L (17-59); Albumin 2.8 g/dl (3.5-5.0); Alkaline Phosphatase 67 U/L (38-126); Blood Urea Nitrogen 20 mg/dl (9-20); Calcium 7.6 mg/dl (8.4-10.2); Carbon Dioxide 33 mmol/L (22-30); Chloride 86 mmol/L (98-107); Direct Bilirubin 1.2 mg/dl (0.0-0.4); Estimated Creatinine Clearance > 125 ml/min; Glucose 118 mg/dl (70-99); Potassium 3.5 mmol/L (3.5-5.1); Sodium 121 mmol/L (135-145); Total Bilirubin 3.4 mg/dl (0.2-1.3); eGFR > 60.00
[2023-09-19 06:15] LABS: Hematocrit 32.8 % (39.0-52.0); Mean Corp Hgb Conc. 36.6 g/dL (33.0-37.0); Mean Corpuscular Hgb 31.3 pg (27.0-31.0); Mean Corpuscular Volume 85.6 fL (80.0-94.0); Mean Platelet Volume 14.3 fL (7.4-10.4); Platelet Count 68 10^3/uL (130-400); Red Blood Cell Count 3.83 10^6/uL (4.70-6.10); Red Cell Dist. Width 13.2 % (11.5-14.5); White Blood Cell Count 5.6 10^3/uL (4.8-10.8)
[2023-09-19 06:46] LABS: Hepatitis C Antibody Negative (Negative)
[2023-09-19 08:01] VITALS: BP 174/109
[2023-09-19] MEDS: TRANDATE 100 MG PO (08:05)
[2023-09-19] MEDS: VIBRAMYCIN 100 MG PO ×2 (08:05→20:09)
[2023-09-19] MEDS: ZESTRIL 20 MG PO (08:05)
[2023-09-19] MEDS: NSS 1000 IV (08:58)
--- NOTE | 2023-09-19 09:27 | W.PN.UPDATE ---
Update Note
Progress Note Update
Diagnosis:
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
QTc 478
start azithromycin/atovaquone; continue doxycycline
no indication for exchange transfusion
Mag and phos levels
recheck parasitemia at intervals would be an option - plan to recheck at 48 hrs
LDH not needed from my perspective
Orders placed. Will see patient on the floors later today to discuss diagnosis and plan.
[2023-09-19] MEDS: ZITHROMAX INFUSION 250 IV (09:45)
[2023-09-19] MEDS: MEPRON SUSPENSION 750 MG PO ×2 (10:15→20:08)
[2023-09-19 10:26] LABS: Magnesium 1.9 mg/dl (1.6-2.3); Phosphorus 2.8 mg/dl (2.5-4.5)
[2023-09-19 11:10] VITALS: BP 108/59
--- NOTE | 2023-09-19 11:11 | CM ---
Patient seen bedside, initial assessment completed. Patient resides in a multiple level home, a few steps to enter, with his , children, dog, and cat. Patient denies use of DME other than a snore guard, VN, or SNF, reports he has a cane at home
if needed. Patient confirms PCP Emy Galicia, pharmacy [facility], confirms prescription coverage. CM will continue to follow for all discharge planning needs.
Plan; home no needs likely.
--- NOTE | 2023-09-19 11:31 | W.PN.HOSP.TC ---
Today's Communication/Plan
-
Tested positive for Babesiosis,
Assessment / Plan
Assessment / Plan
IMPRESSION:
68 years old male with history of Hodgkin lymphoma, hypertension, hyperlipidemia came with fever and hyponatremia, sodium level 119, infectious disease and nephrology consulted.
tested positive for Babesiosis, started on azithromycin/atovaquone/ doxycycline.
PLAN:
Hyponatremia.
Sodium level was 127 on September 12
in the ER sodium level 119.
Nephrology consulted.
Serial BMP
HTCZ on hold.
last sodium level today is 121
Sever Babesiosis
patient still running fever
Blood culture pending.
Started on Zosyn in the ER, will continue. (now discontinued)
Infectious disease consult.
tested positive for Babesiosis,
azithromycin/atovaquone/ doxycycline.
history of Lymphocyte predominant Hodgkin lymphoma
Diagnosed on August 2021- (patient admitted back then with empyema, gram-negative bacteremia ,diffuse lymphadenopathy and splenomegaly)
Currently on remission, not currently on any treatment.
Follows oncology as outpatient.
History of hypertension
Continue home meds
Hold hydrochlorothiazide
Hyperlipidemia.
Hold statin for now
CODE STATUS: Full code
DVT prophylaxis: Lovenox
Diet: Regular diet
Anticipated Discharge: > 48 hours
Subjective/Interval History
-
Date of Service: September 19, 2023
patient still running fever, otherwise feeling better, no chest pain or shortness of breath.
tested positive for Babesiosis, started on azithromycin/atovaquone/ doxycycline by ID.
Dc Zosyn.
Objective Data
-
Labs:
Laboratory Results
09/19/23 09/19/23
04:31 12:00
WBC 5.6
Hgb 12.0 L
Hct 32.8 L
Plt Count 68 L
Sodium 121 L Pending
Potassium 3.5 Pending
Chloride 86 L Pending
Carbon Dioxide 33 H Pending
BUN 20 Pending
Creatinine 0.7 Pending
Glucose 118 H Pending
Calcium 7.6 L Pending
Total Bilirubin 3.4 H
AST 97 H
ALT 35
Alkaline Phosphatase 67
Vital Signs:
Vital Signs
Temp Pulse Resp BP Pulse Ox
100.1 F 102 20 174/109 96
09/19/23 09:00 09/19/23 08:01 09/19/23 08:01 09/19/23 08:01 09/19/23 08:01
I&O
09/18/23 09/19/23 09/20/23
06:59 06:59 06:59
Intake Total 480 / 480
Balance 480 / 480
Physical Exam
-
General: Well Developed, Well Nourished and No Apparent Distress
Respiratory: Clear to Auscultation; Negative Wheezes or Rhonchi
Cardiac: Regular Rhythm and S1/S2; Negative Murmur
GI: Soft, Nontender, Nondistended and Normal Bowel Sounds
Musculoskeletal: No Clubbing, No Cyanosis and No Edema
Neuro: Awake
Psych: Calm
--- NOTE | 2023-09-19 11:54 | W.PN.ID1 ---
Date of Service
Date of Service: September 19, 2023
Today's Communication
fevers likely to resolve over several days with treatment of babesia and is a prognostic symptom
advise against cooling blanket, steroids; ok for PRN tylenol/nsaids
azithromycin, atovaquone and doxycycline to continue
recheck qtc in the am
Assessment / Plan
Babesiosis - Severe Immunocompetent Host; unclear if coinfection
Probable Tick Born Illness
Lymphocyte predominant Hodgkin lymphoma currently on remission
- fever is expected to resolve with treatment of babeisa/coinfections typically over several days - resolution of fever is one of our prognostic symptoms
- advise against systemic steroids
- fever itself is not dangerous to patient and does not mandate management
- if needed for comfort PRN tylenol can be used; if patient remains uncomfortable PRN NSAIDs could be added
- advise against use of cooling blanket outside of critical care
- thrombocytopenia, hyponatremia, mild transaminitis triad suggestive of tick born infections such as babesia
- babesia smear with high parasitemia
- start azithromycin/atovaquone - likely for a 10 day course.
- QTc 478, mag and phos normal; recheck in the AM
- coinfections relatively common (lyme, ehrlichia, anaplasma) - is on empiric therapy with doxycycline
- hyponatremia management per nephrology
- mild, sterile pyuria noted - could be reassessed as an outpatient, would not recommend further workup at this moment
- CT a/p no lymphadenopathy to suggest relapse of lymphoma
- follow clinically
Chief Complaint
-: Other (babesiosis)
Subjective / Review of Systems
fever ongoing - was started on pathogen directed treatment this am
hypertensive
no leukocytosis
cr stable
small improvement in Na to 121
having some difficulties with focusing - likely related to the hyponatremia
updated with plan
Vital Signs / Physical Exam
Vital Signs
Vital Signs
Temp Pulse Resp BP Pulse Ox
100.1 F 102 20 174/109 96
09/19/23 09:00 09/19/23 08:01 09/19/23 08:01 09/19/23 08:01 09/19/23 08:01
Physical Exam
Constitutional: No Acute Distress
Cardiovascular: Regular Rate and S1/S2; Negative Murmur or Rub
Pulmonary: Clear and Symmetric; Negative Wheezes or Rales
Gastrointestinal: Soft, Non Tender, Non Distended and Normal Bowel Sounds
Skin: Warm and Dry; Negative Rash or Jaundice
Neurological: Awake
Psychological: Other (some difficulties with concentration such as calling his on the phone)
Objective Data
Lab Data
Lab Results
09/19/23 04:31
Estimated Creat Clear > 125 ml/min 09/19/23 04:31
Lactic Acid Cancelled 09/18/23 13:45
Total Bilirubin 3.4 mg/dl (0.2-1.3) H 09/19/23 04:31
AST 97 U/L (17-59) H 09/19/23 04:31
ALT 35 U/L (0-50) 09/19/23 04:31
Alkaline Phosphatase 67 U/L (38-126) 09/19/23 04:31
Most recent labs reviewed.
Micro Results:
09/18/23 12:46 Urine Culture - Final
Urine NO GROWTH
09/18/23 09:52 Blood Culture - Preliminary
Blood/Venous No Growth in 24 hours- Final report to follow
09/18/23 22:03 Blood Parasites Smear - Final
Blood/Venous Babesia species
09/18/23 09:52 Influenza Types A & B (LON) - Final
Nasal Swab Negative for Influenza A & B, NAAT
Negative results must be combined with clinical observations
and patient history.
Nucleic Acid Amplification test (NAAT)performed on the
[employer] platform.
[2023-09-19 12:42] LABS: Blood Urea Nitrogen 24 mg/dl (9-20); Calcium 7.2 mg/dl (8.4-10.2); Carbon Dioxide 31 mmol/L (22-30); Chloride 86 mmol/L (98-107); Estimated Creatinine Clearance 118 ml/min; Glucose 144 mg/dl (70-99); Potassium 3.6 mmol/L (3.5-5.1); Sodium 119 mmol/L (135-145); eGFR > 60.00
[2023-09-19 15:06] VITALS: BP 118/66
--- NOTE | 2023-09-19 15:19 | W.PN.NEPH.PH ---
Today's Communication / Plan
-
- normal saline transition to hypertonic saline
- encourage PO intake
Assessment/Plan
-
Assessment:
History of Hodgkin's lymphoma
hyponatremia
HTN
Elevated BUN and LFTs
Hypokalemia
Plan
Serial BMP
Stop hydrochlorothiazide
given normal saline and sodium is again dropping although patient feels better
will change to HTS (SIADH?? in the setting of tick borne illness). 3% at 35cc/hr
encouraged patient to increase protein intake
Replete potassium IV
CT A/P without obstruction of kidneys, no acute processes noted
-
-
Date of Service: September 19, 2023
CC / HPI / ROS
-
Chief Complaint:
hyponatremia
History of Present Illness:
Na down to 119, baseline close to 127-130
high fevers --> tick born illness
Review of Systems:
feeling improved with normal saline but sodium did drop with this
Labs
-
Labs:
WBC 5.6 10^3/uL (4.8-10.8) 09/19/23 04:31
RBC 3.83 10^6/uL (4.70-6.10) L 09/19/23 04:31
Hgb 12.0 g/dL (13.0-18.0) L 09/19/23 04:31
Hct 32.8 % (39.0-52.0) L 09/19/23 04:31
Plt Count 68 10^3/uL (130-400) L 09/19/23 04:31
Sodium 119 mmol/L (135-145) L* 09/19/23 11:59
Potassium 3.6 mmol/L (3.5-5.1) 09/19/23 11:59
Chloride 86 mmol/L (98-107) L 09/19/23 11:59
Carbon Dioxide 31 mmol/L (22-30) H 09/19/23 11:59
BUN 24 mg/dl (9-20) H 09/19/23 11:59
Creatinine 0.8 mg/dL (0.7-1.3) 09/19/23 11:59
eGFR > 60.00 09/19/23 11:59
Glucose 144 mg/dl (70-99) H 09/19/23 11:59
Calcium 7.2 mg/dl (8.4-10.2) L 09/19/23 11:59
Phosphorus 2.8 mg/dl (2.5-4.5) 09/19/23 09:54
Albumin 2.8 g/dl (3.5-5.0) L 09/19/23 04:31
Physical Exam
-
Vital Signs:
Vital Signs
Temp Pulse Resp BP Pulse Ox
100.3 F 76 16 108/59 94
09/19/23 12:55 09/19/23 11:10 09/19/23 11:10 09/19/23 11:10 09/19/23 11:10
Cardiovascular:: Regular rate and rhythm
Respiratory:: Bilateral: Coarse
Lung Excursion:: Normal
Abdomen:: Nontender and Soft
Bowel Sounds:: Normal
Extremity Edema:: +1: Bilateral:
[place] Catheter: No
[2023-09-19] MEDS: SODIUM CHLORIDE 3% 250 IV (15:47)
[2023-09-19] MEDS: NSS IV (15:47)
[2023-09-19] MEDS: LOVENOX 40 MG SC (18:04)
[2023-09-19 19:10] VITALS: BP 120/75
[2023-09-19] MEDS: PEPCID 20 MG PO (20:09)
[2023-09-19 23:00] VITALS: BP 112/64
[2023-09-20] MEDS: TYLENOL 650 MG PO ×2 (02:42→17:32)
[2023-09-20 03:27] VITALS: BP 119/95
[2023-09-20 07:00] VITALS: BP 127/80
[2023-09-20 07:12] LABS: Blood Urea Nitrogen 20 mg/dl (9-20); Calcium 7.2 mg/dl (8.4-10.2); Carbon Dioxide 32 mmol/L (22-30); Chloride 88 mmol/L (98-107); Estimated Creatinine Clearance > 125 ml/min; Glucose 105 mg/dl (70-99); Potassium 3.6 mmol/L (3.5-5.1); Sodium 122 mmol/L (135-145); eGFR > 60.00
[2023-09-20 07:35] LABS: Hematocrit 30.3 % (39.0-52.0); Mean Corp Hgb Conc. 36.3 g/dL (33.0-37.0); Mean Corpuscular Hgb 31.4 pg (27.0-31.0); Mean Corpuscular Volume 86.6 fL (80.0-94.0); Mean Platelet Volume 13.6 fL (7.4-10.4); Platelet Count 95 10^3/uL (130-400); Red Cell Dist. Width 14.1 % (11.5-14.5); White Blood Cell Count 5.6 10^3/uL (4.8-10.8)
[2023-09-20] MEDS: ZITHROMAX INFUSION 250 IV (08:50)
[2023-09-20] MEDS: VIBRAMYCIN 100 MG PO ×2 (08:51→20:19)
[2023-09-20] MEDS: MEPRON SUSPENSION 750 MG PO ×2 (08:51→20:18)
[2023-09-20] MEDS: PEPCID 20 MG PO ×2 (08:51→20:19)
[2023-09-20] MEDS: ZESTRIL 20 MG PO (08:51)
[2023-09-20] MEDS: TRANDATE 100 MG PO (08:54)
--- NOTE | 2023-09-20 10:42 | W.PN.NEPH.PH ---
Today's Communication / Plan
-
- please replete K
- HTS
Assessment/Plan
-
Assessment:
History of Hodgkin's lymphoma
hyponatremia
HTN
Elevated BUN and LFTs
Hypokalemia
Plan
Serial BMP
Stop hydrochlorothiazide
given normal saline and sodium is again dropping although patient feels better
will change to HTS (SIADH?? in the setting of tick borne illness). 3% at 35cc/hr
sodium did improve with HTS, will repeat for 500cc total today
encouraged patient to increase protein intake
Replete potassium IV
CT A/P without obstruction of kidneys, no acute processes noted
-
-
Date of Service: September 20, 2023
CC / HPI / ROS
-
Chief Complaint:
hyponatremia
History of Present Illness:
Na down to 119,improved to 122 with HTS, baseline close to 127-130
high fevers --> tick born illness --> SIADH?
Review of Systems:
feeling improved with normal saline but sodium did drop with this so changed to HTS
improved
Labs
-
Labs:
WBC 5.6 10^3/uL (4.8-10.8) 09/20/23 06:24
RBC 3.50 10^6/uL (4.70-6.10) L 09/20/23 06:24
Hgb 11.0 g/dL (13.0-18.0) L 09/20/23 06:24
Hct 30.3 % (39.0-52.0) L 09/20/23 06:24
Plt Count 95 10^3/uL (130-400) L D 09/20/23 06:24
Sodium 122 mmol/L (135-145) L 09/20/23 06:24
Potassium 3.6 mmol/L (3.5-5.1) 09/20/23 06:24
Chloride 88 mmol/L (98-107) L 09/20/23 06:24
Carbon Dioxide 32 mmol/L (22-30) H 09/20/23 06:24
BUN 20 mg/dl (9-20) 09/20/23 06:24
Creatinine 0.7 mg/dL (0.7-1.3) 09/20/23 06:24
eGFR > 60.00 09/20/23 06:24
Glucose 105 mg/dl (70-99) H 09/20/23 06:24
Calcium 7.2 mg/dl (8.4-10.2) L 09/20/23 06:24
Phosphorus 2.8 mg/dl (2.5-4.5) 09/19/23 09:54
Albumin 2.8 g/dl (3.5-5.0) L 09/19/23 04:31
Physical Exam
-
Vital Signs:
Vital Signs
Temp Pulse Resp BP Pulse Ox
100 F 92 18 127/80 96
09/20/23 07:00 09/20/23 07:00 09/20/23 07:00 09/20/23 07:00 09/20/23 07:00
Cardiovascular:: Regular rate and rhythm
Respiratory:: Bilateral: Coarse
Lung Excursion:: Normal
Abdomen:: Nontender and Soft
Bowel Sounds:: Normal
Extremity Edema:: None: Bilateral:
Argueta Catheter: No
[2023-09-20] MEDS: SODIUM CHLORIDE 3% 500 IV (11:05)
[2023-09-20 11:17] VITALS: BP 118/78
--- NOTE | 2023-09-20 11:39 | W.PN.ID1 ---
Date of Service
Date of Service: September 20, 2023
Today's Communication
Continue antibiotics.
Assessment / Plan
Babesiosis - Severe (parisitemia 7%)
- Immunocompetent Host; unclear if coinfection
Lymphocyte predominant Hodgkin lymphoma (currently in remission)
Thrombocytopenia
Hyponatremia
Mild transaminitis
Continue azithromycin/atovaquone - likely for a 10 day course.
- QTc 447 today
- coinfections relatively common (lyme, ehrlichia, anaplasma) - is on empiric therapy with doxycycline
- hyponatremia management per nephrology
- repeat peripheral smear in a.m. for parasite load.
- follow clinically
Chief Complaint
-: Other (babesiosis)
Subjective / Review of Systems
Patient seen and examined. Reports generalized weakness.
Review of Systems: No Fever and No Chills
Vital Signs / Physical Exam
Vital Signs
Vital Signs
Temp Pulse Resp BP Pulse Ox
100.7 F H 84 18 118/78 96
09/20/23 11:17 09/20/23 11:17 09/20/23 11:17 09/20/23 11:17 09/20/23 11:17
Physical Exam
Constitutional: No Acute Distress, Comfortable and Non-toxic
Eyes: Sclera Anicteric
Cardiovascular: S1/S2; Negative S3/S4
Pulmonary: Non Labored
Gastrointestinal: Soft and Non Tender
Neurological: Awake, Alert and AO x 3
Psychological: Calm
Objective Data
Lab Data
Lab Results
09/20/23 06:24
09/20/23 06:24
Estimated Creat Clear > 125 ml/min 09/20/23 06:24
Lactic Acid Cancelled 09/18/23 13:45
Total Bilirubin 3.4 mg/dl (0.2-1.3) H 09/19/23 04:31
AST 97 U/L (17-59) H 09/19/23 04:31
ALT 35 U/L (0-50) 09/19/23 04:31
Alkaline Phosphatase 67 U/L (38-126) 09/19/23 04:31
Most recent labs reviewed.
Micro Results:
09/18/23 09:52 Blood Culture - Preliminary
Blood/Venous No Growth in 48 hours- Final report to follow
09/18/23 12:46 Urine Culture - Final
Urine NO GROWTH
09/18/23 22:03 Blood Parasites Smear - Final
Blood/Venous Babesia species
09/18/23 09:52 Influenza Types A & B (LON) - Final
Nasal Swab Negative for Influenza A & B, NAAT
Negative results must be combined with clinical observations
and patient history.
Nucleic Acid Amplification test (NAAT)performed on the
[employer] NOW platform.
--- NOTE | 2023-09-20 13:14 | W.PN.HOSP.TC ---
Today's Communication/Plan
-
nephro recs
Cont abx
trend cbc
Assessment / Plan
Assessment / Plan
IMPRESSION:
68 years old male with history of Hodgkin lymphoma, hypertension, hyperlipidemia came with fever and hyponatremia, sodium level 119, infectious disease and nephrology consulted.
tested positive for Babesiosis, started on azithromycin/atovaquone/ doxycycline.
PLAN:
Hyponatremia.
Sodium level was 127 on September 12
in the ER sodium level 119.
Nephrology consulted.
Serial BMP
HTCZ on hold.
Na at 122.
May require hypertonic saline?
Sever Babesiosis
patient still running fever but temp is lower compared to before.
Blood culture ngeative so far
Started on Zosyn in the ER, will continue. (now discontinued)
Infectious disease consult.
tested positive for Babesiosis,
azithromycin/atovaquone/ doxycycline.
Plan for peripheral smear in am per ID
history of Lymphocyte predominant Hodgkin lymphoma
Diagnosed on August 2021- (patient admitted back then with empyema, gram-negative bacteremia ,diffuse lymphadenopathy and splenomegaly)
Currently on remission, not currently on any treatment.
Follows oncology as outpatient.
Primary HTN
Continue home meds
Hold hydrochlorothiazide
Hyperlipidemia.
Hold statin for now
Thrombocytopenia likely secondary to babesiosis versus lymphoma
Continue to trend platelets. Slowly improving.
CODE STATUS: Full code
DVT prophylaxis: Lovenox
Diet: Regular diet
Anticipated Discharge: > 48 hours
Subjective/Interval History
-
Date of Service: September 20, 2023
spiked fever but lower temp compared to last 2 days
Objective Data
-
Labs:
Laboratory Results
09/20/23
06:24
WBC 5.6
Hgb 11.0 L
Hct 30.3 L
Plt Count 95 L D
Sodium 122 L
Potassium 3.6
Chloride 88 L
Carbon Dioxide 32 H
BUN 20
Creatinine 0.7
Glucose 105 H
Calcium 7.2 L
Vital Signs:
Vital Signs
Temp Pulse Resp BP Pulse Ox
100.7 F H 84 18 118/78 96
09/20/23 11:17 09/20/23 11:17 09/20/23 11:17 09/20/23 11:17 09/20/23 11:17
I&O
09/19/23 09/20/23 09/21/23
06:59 06:59 06:59
Intake Total 480 / 480 480 / 480
Balance 480 / 480 480 / 480
Physical Exam
-
General: Well Developed, Well Nourished and No Apparent Distress
GI: Nondistended
Musculoskeletal: No Clubbing, No Cyanosis and No Edema
Neuro: Awake, Alert, Oriented, AO x 3 and No Motor Deficits
Psych: Calm
[2023-09-20 15:25] VITALS: BP 122/77
[2023-09-20] MEDS: LOVENOX 40 MG SC (17:32)
[2023-09-20 19:35] VITALS: BP 99/62
[2023-09-20 23:03] VITALS: BP 121/77
[2023-09-21] MEDS: TYLENOL 650 MG PO ×2 (03:17→22:05)
[2023-09-21 03:39] VITALS: BP 129/75
[2023-09-21 05:33] LABS: Anaplasma phagocytophilum IgG <1:80 (<1:80); Anaplasma phagocytophilum IgM < 1:16 (< 1:16)
[2023-09-21 07:43] VITALS: BP 116/69
[2023-09-21] MEDS: VIBRAMYCIN 100 MG PO ×2 (08:40→21:09)
[2023-09-21] MEDS: PEPCID 20 MG PO ×2 (08:40→21:09)
[2023-09-21] MEDS: MEPRON SUSPENSION 750 MG PO ×2 (08:40→21:09)
[2023-09-21] MEDS: ZESTRIL 20 MG PO (08:40)
[2023-09-21] MEDS: TRANDATE 100 MG PO (08:40)
[2023-09-21 09:24] LABS: Hematocrit 32.1 % (39.0-52.0); Hemoglobin 11.3 g/dL (13.0-18.0); Mean Corp Hgb Conc. 35.2 g/dL (33.0-37.0); Mean Corpuscular Hgb 30.6 pg (27.0-31.0); Mean Platelet Volume 12.6 fL (7.4-10.4); Platelet Count 111 10^3/uL (130-400); Red Blood Cell Count 3.69 10^6/uL (4.70-6.10); Red Cell Dist. Width 14.4 % (11.5-14.5); White Blood Cell Count 6.3 10^3/uL (4.8-10.8)
[2023-09-21 09:53] LABS: Blood Urea Nitrogen 16 mg/dl (9-20); Calcium 7.4 mg/dl (8.4-10.2); Carbon Dioxide 28 mmol/L (22-30); Chloride 93 mmol/L (98-107); Estimated Creatinine Clearance > 125 ml/min; Glucose 113 mg/dl (70-99); Magnesium 2.6 mg/dl (1.6-2.3); Potassium 3.6 mmol/L (3.5-5.1); Sodium 127 mmol/L (135-145); eGFR > 60.00
[2023-09-21] MEDS: ZITHROMAX INFUSION 250 IV (10:14)
--- NOTE | 2023-09-21 10:38 | W.PN.ID1 ---
Date of Service
Date of Service: September 21, 2023
Today's Communication
Continue current antibiotics.
Assessment / Plan
Babesiosis - Severe (parisitemia 7% on 09/17; current slide pending)
- Immunocompetent Host; unclear if coinfection
Lymphocyte predominant Hodgkin lymphoma (currently in remission)
Thrombocytopenia
Hyponatremia
Mild transaminitis
Recommendations:
Continue azithromycin/atovaquone - likely for a 10 day course.
- QTc 447 on 09/20/23
- coinfections relatively common (lyme, ehrlichia, anaplasma) - currently on empiric therapy with doxycycline
- hyponatremia management per nephrology
- repeat peripheral smear in a.m. for parasite load pending.
- follow clinically
Chief Complaint
-: Other (babesiosis)
Subjective / Review of Systems
Patient seen and examined. Reports feeling improved today.
Review of Systems: No Fever and No Chills
Vital Signs / Physical Exam
Vital Signs
Vital Signs
Temp Pulse Resp BP Pulse Ox
97.6 F 67 16 116/69 99
09/21/23 07:43 09/21/23 07:43 09/21/23 07:43 09/21/23 07:43 09/21/23 07:43
Physical Exam
Constitutional: No Acute Distress and Comfortable
Eyes: Sclera Anicteric
Cardiovascular: S1/S2; Negative S3/S4
Pulmonary: Non Labored
Gastrointestinal: Soft and Non Tender
Neurological: Awake, Alert and AO x 3
Psychological: Calm
Objective Data
Lab Data
Lab Results
09/21/23 07:57
09/21/23 07:57
Estimated Creat Clear > 125 ml/min 09/21/23 07:57
Lactic Acid Cancelled 09/18/23 13:45
Total Bilirubin 3.4 mg/dl (0.2-1.3) H 09/19/23 04:31
AST 97 U/L (17-59) H 09/19/23 04:31
ALT 35 U/L (0-50) 09/19/23 04:31
Alkaline Phosphatase 67 U/L (38-126) 09/19/23 04:31
Most recent labs reviewed.
Micro Results:
09/18/23 09:52 Blood Culture - Preliminary
Blood/Venous No Growth in 72 hours- Final report to follow
09/21/23 07:57 Blood Parasites Smear - Pending
Blood/Venous
09/18/23 12:46 Urine Culture - Final
Urine NO GROWTH
09/18/23 22:03 Blood Parasites Smear - Final
Blood/Venous Babesia species
09/18/23 09:52 Influenza Types A & B (LON) - Final
Nasal Swab Negative for Influenza A & B, NAAT
Negative results must be combined with clinical observations
and patient history.
Nucleic Acid Amplification test (NAAT)performed on the
[employer] platform.
--- NOTE | 2023-09-21 10:44 | W.PN.HOSP.TC ---
Today's Communication/Plan
-
trend bmp
ID recs
Trend fever curve
oob/ambulate
Assessment / Plan
Assessment / Plan
IMPRESSION:
68 years old male with history of Hodgkin lymphoma, hypertension, hyperlipidemia came with fever and hyponatremia, sodium level 119, infectious disease and nephrology consulted.
tested positive for Babesiosis, started on azithromycin/atovaquone/ doxycycline.
PLAN:
Hyponatremia.
Sodium level was 127 on September 12
in the ER sodium level 119.
Nephrology consulted.
Serial BMP
HTCZ on hold.
Na at 127 s/p 3% saline yesterday
Sever Babesiosis
patient still running fever but temp is lower compared to before.
Blood culture negative so far
Started on Zosyn in the ER, will continue. (now discontinued)
Infectious disease consult.
tested positive for Babesiosis,
azithromycin/atovaquone/ doxycycline.
Plan for repeat blood parasite peripheral smear pending
Anaplasma titers negative. Lyme screen and Ehlrichia are pending
ID recs
history of Lymphocyte predominant Hodgkin lymphoma
Diagnosed on August 2021- (patient admitted back then with empyema, gram-negative bacteremia ,diffuse lymphadenopathy and splenomegaly)
Currently on remission, not currently on any treatment.
Follows oncology as outpatient.
Primary HTN
Continue home meds
Hold hydrochlorothiazide
Hyperlipidemia.
Hold statin for now
Thrombocytopenia likely secondary to babesiosis versus lymphoma
Continue to trend platelets. Slowly improving.
CODE STATUS: Full code
DVT prophylaxis: Lovenox
Diet: Regular diet
Anticipated Discharge: > 48 hours
Subjective/Interval History
-
Date of Service: September 21, 2023
states starting to feel better
Objective Data
-
Labs:
Laboratory Results
09/21/23
07:57
WBC 6.3
Hgb 11.3 L
Hct 32.1 L
Plt Count 111 L
Sodium 127 L
Potassium 3.6
Chloride 93 L
Carbon Dioxide 28
BUN 16
Creatinine 0.6 L
Glucose 113 H
Calcium 7.4 L
Vital Signs:
Vital Signs
Temp Pulse Resp BP Pulse Ox
97.6 F 67 16 116/69 99
09/21/23 07:43 09/21/23 07:43 09/21/23 07:43 09/21/23 07:43 09/21/23 07:43
I&O
09/20/23 09/21/23 09/22/23
06:59 06:59 06:59
Intake Total 480 / 480 480 / 480
Balance 480 / 480 480 / 480
Physical Exam
-
General: Well Developed, Well Nourished and No Apparent Distress
HEENT: Normocephalic, Atraumatic and Moist Mucous Membranes
Respiratory: Clear to Auscultation
Cardiac: Regular Rhythm and S1/S2
GI: Soft, Nontender, Nondistended and Normal Bowel Sounds
Musculoskeletal: No Clubbing, No Cyanosis and No Edema
Neuro: Awake, Alert, Oriented, AO x 3 and No Motor Deficits
Psych: Calm
[2023-09-21 11:46] VITALS: BP 105/59
--- NOTE | 2023-09-21 12:02 | W.PN.NEPH.PH ---
Today's Communication / Plan
-
- 3%
Assessment/Plan
-
Assessment:
History of Hodgkin's lymphoma
hyponatremia
HTN
Elevated BUN and LFTs
Hypokalemia
Plan
Serial BMP
Stop hydrochlorothiazide
given normal saline and sodium dropped
responded well to HTS (SIADH?? in the setting of babesiosa). 3% at 35cc/hr
sodium did improve with HTS, will repeat for 250cc
will avoid samsca in the setting of elevated liver enzymes
encouraged patient to increase protein intake
CT A/P without obstruction of kidneys, no acute processes noted
-
-
Date of Service: September 21, 2023
CC / HPI / ROS
-
Chief Complaint:
hyponatremia
History of Present Illness:
Na down to 119,improved to 122 with HTS, baseline close to 127-130, at baseline but will repeat again
high fevers --> tick born illness --> SIADH?
Review of Systems:
feeling improved with normal saline but sodium did drop with this so changed to HTS
improved
Labs
-
Labs:
WBC 6.3 10^3/uL (4.8-10.8) 09/21/23 07:57
RBC 3.69 10^6/uL (4.70-6.10) L 09/21/23 07:57
Hgb 11.3 g/dL (13.0-18.0) L 09/21/23 07:57
Hct 32.1 % (39.0-52.0) L 09/21/23 07:57
Plt Count 111 10^3/uL (130-400) L 09/21/23 07:57
Sodium 127 mmol/L (135-145) L 09/21/23 07:57
Potassium 3.6 mmol/L (3.5-5.1) 09/21/23 07:57
Chloride 93 mmol/L (98-107) L 09/21/23 07:57
Carbon Dioxide 28 mmol/L (22-30) 09/21/23 07:57
BUN 16 mg/dl (9-20) 09/21/23 07:57
Creatinine 0.6 mg/dL (0.7-1.3) L 09/21/23 07:57
eGFR > 60.00 09/21/23 07:57
Glucose 113 mg/dl (70-99) H 09/21/23 07:57
Calcium 7.4 mg/dl (8.4-10.2) L 09/21/23 07:57
Phosphorus 2.8 mg/dl (2.5-4.5) 09/19/23 09:54
Albumin 2.8 g/dl (3.5-5.0) L 09/19/23 04:31
Physical Exam
-
Vital Signs:
Vital Signs
Temp Pulse Resp BP Pulse Ox
99.3 F 78 18 105/59 98
09/21/23 11:46 09/21/23 11:46 09/21/23 11:46 09/21/23 11:46 09/21/23 11:46
Cardiovascular:: Regular rate and rhythm
Respiratory:: Bilateral: CTA
Lung Excursion:: Normal
Abdomen:: Nontender and Soft
Bowel Sounds:: Normal
Extremity Edema:: None: Bilateral:
Argueta Catheter: No
[2023-09-21 15:29] VITALS: BP 103/64
[2023-09-21] MEDS: LOVENOX 40 MG SC (17:20)
[2023-09-21 19:10] VITALS: BP 131/70
[2023-09-21 23:05] VITALS: BP 137/74
[2023-09-22 03:05] VITALS: BP 106/72
[2023-09-22 04:06] LABS: Ehrlichia chaffeensis IgG Ab <1:64 (<1:64); Ehrlichia chaffeensis IgM Ab < 1:16 (< 1:16)
[2023-09-22 05:13] LABS: Hematocrit 28.9 % (39.0-52.0); Hemoglobin 10.3 g/dL (13.0-18.0); Mean Corp Hgb Conc. 35.6 g/dL (33.0-37.0); Mean Corpuscular Hgb 30.9 pg (27.0-31.0); Mean Corpuscular Volume 86.8 fL (80.0-94.0); Platelet Count 147 10^3/uL (130-400); Red Blood Cell Count 3.33 10^6/uL (4.70-6.10); Red Cell Dist. Width 14.6 % (11.5-14.5); White Blood Cell Count 7.6 10^3/uL (4.8-10.8)
[2023-09-22 05:34] LABS: Blood Urea Nitrogen 13 mg/dl (9-20); Calcium 7.1 mg/dl (8.4-10.2); Carbon Dioxide 31 mmol/L (22-30); Chloride 91 mmol/L (98-107); Estimated Creatinine Clearance > 125 ml/min; Glucose 104 mg/dl (70-99); Potassium 3.7 mmol/L (3.5-5.1); Sodium 125 mmol/L (135-145); eGFR > 60.00
[2023-09-22 07:00] VITALS: BP 137/82
[2023-09-22] MEDS: MEPRON SUSPENSION 750 MG PO ×2 (07:51→19:36)
[2023-09-22] MEDS: TRANDATE 100 MG PO (07:51)
[2023-09-22] MEDS: PEPCID 20 MG PO ×2 (07:51→19:35)
[2023-09-22] MEDS: ZESTRIL 20 MG PO (07:51)
[2023-09-22] MEDS: VIBRAMYCIN 100 MG PO ×2 (07:51→19:35)
[2023-09-22] MEDS: TYLENOL 650 MG PO ×2 (07:51→19:35)
[2023-09-22] MEDS: ZITHROMAX INFUSION 250 IV (09:21)
--- NOTE | 2023-09-22 10:16 | W.PN.NEPH.PH ---
Today's Communication / Plan
-
samsca and FR
Assessment/Plan
-
Assessment:
History of Hodgkin's lymphoma
hyponatremia
HTN
Elevated BUN and LFTs
Hypokalemia
Plan
Hyponatremia in setting of Babesiosa, HCTZ use, low solute intake
U osmo high 390, U na low
Stop hydrochlorothiazide indefinitely
Sodium decreasing despite HTS
will try samsca today
encouraged patient to increase solute/protein intake
maintain FR 48ounces/day
BP stable on ACEI and BB
abx per ID
d/w pt in detail
-
-
Date of Service: September 22, 2023
CC / HPI / ROS
-
Chief Complaint:
hyponatremia
History of Present Illness:
sodium down to 125, BP stable
low grade fevers
Review of Systems:
no pain, feels well
no dizziness, improving appetite
Labs
-
Labs:
WBC 7.6 10^3/uL (4.8-10.8) 09/22/23 04:36
RBC 3.33 10^6/uL (4.70-6.10) L 09/22/23 04:36
Hgb 10.3 g/dL (13.0-18.0) L 09/22/23 04:36
Hct 28.9 % (39.0-52.0) L 09/22/23 04:36
Plt Count 147 10^3/uL (130-400) D 09/22/23 04:36
Sodium 125 mmol/L (135-145) L 09/22/23 04:36
Potassium 3.7 mmol/L (3.5-5.1) 09/22/23 04:36
Chloride 91 mmol/L (98-107) L 09/22/23 04:36
Carbon Dioxide 31 mmol/L (22-30) H 09/22/23 04:36
BUN 13 mg/dl (9-20) 09/22/23 04:36
Creatinine 0.6 mg/dL (0.7-1.3) L 09/22/23 04:36
eGFR > 60.00 09/22/23 04:36
Glucose 104 mg/dl (70-99) H 09/22/23 04:36
Calcium 7.1 mg/dl (8.4-10.2) L 09/22/23 04:36
Phosphorus 2.8 mg/dl (2.5-4.5) 09/19/23 09:54
Albumin 2.8 g/dl (3.5-5.0) L 09/19/23 04:31
Physical Exam
-
Vital Signs:
Vital Signs
Temp Pulse Resp BP Pulse Ox
98.5 F 89 18 137/82 96
09/22/23 09:28 09/22/23 07:00 09/22/23 07:00 09/22/23 07:51 09/22/23 07:00
Cardiovascular:: Regular rate and rhythm
Respiratory:: Bilateral: CTA
Lung Excursion:: Normal
Abdomen:: Nontender and Soft
Extremity Edema:: None: Bilateral:
Argueta Catheter: No
[2023-09-22] MEDS: SAMSCA 15 MG PO (10:52)
[2023-09-22 11:36] LABS: Lyme Antibody Screen, EIA Negative (Negative)
--- NOTE | 2023-09-22 11:43 | CM ---
Patient seen at bedside with patient . Patient states that he is very happy with care and that he plans to go home with . CM will continue to follow for discharge planning needs.
Plan; home with VN vs home with no needs; watch for IV antibiotic needs.
[2023-09-22 12:00] VITALS: BP 94/57
--- NOTE | 2023-09-22 13:24 | W.PN.HOSP.TC ---
Today's Communication/Plan
-
follow BMP
management of Babesiosis by ID noted and appreciated
Assessment / Plan
Assessment / Plan
IMPRESSION:
68 years old male with history of Hodgkin lymphoma, hypertension, hyperlipidemia came with fever and hyponatremia, sodium level 119, infectious disease and nephrology consulted.
tested positive for Babesiosis, started on azithromycin/atovaquone/ doxycycline.
PLAN:
Na 119-->122-->127-->125
in the ER sodium level 119.
Nephrology consulted.
Serial BMP
HTCZ on hold.
Na at 127 s/p 3% saline
received dose of Samsca 09/21
Sever Babesiosis
patient still running fever but temp is lower compared to before.
Blood culture negative so far
Started on Zosyn in the ER discontinued
Doxycycline, Atovaquone, Azithromycin
Infectious disease consult appreciated
tested positive for Babesiosis,
Plan for repeat blood parasite peripheral smear pending
Anaplasma titers negative. Lyme screen neg and Ehlrichia neg
ID recs
history of Lymphocyte predominant Hodgkin lymphoma
Diagnosed on August 2021- (patient admitted back then with empyema, gram-negative bacteremia ,diffuse lymphadenopathy and splenomegaly)
Currently on remission, not currently on any treatment.
Follows oncology as outpatient.
Primary HTN
Continue home meds
Hold hydrochlorothiazide
Hyperlipidemia.
Hold statin for now
Thrombocytopenia likely secondary to babesiosis versus lymphoma
Continue to trend platelets. Slowly improving.
CODE STATUS: Full code
DVT prophylaxis: Lovenox
Diet: Regular diet
Anticipated Discharge: > 48 hours
Subjective/Interval History
-
Date of Service: September 22, 2023
Awake, alert, starting to feel better
Objective Data
-
Labs:
Laboratory Results
09/22/23
04:36
WBC 7.6
Hgb 10.3 L
Hct 28.9 L
Plt Count 147 D
Sodium 125 L
Potassium 3.7
Chloride 91 L
Carbon Dioxide 31 H
BUN 13
Creatinine 0.6 L
Glucose 104 H
Calcium 7.1 L
Vital Signs:
Vital Signs
Temp Pulse Resp BP Pulse Ox
97.8 F 61 18 94/57 99
09/22/23 12:00 09/22/23 12:00 09/22/23 12:00 09/22/23 12:00 09/22/23 12:00
I&O
09/21/23 09/22/23 09/23/23
06:59 06:59 06:59
Intake Total 480 / 480 1090 / 1090
Balance 480 / 480 1090 / 1090
Review of Systems
-
History Source: Patient and Family ( in room)
Constitutional: Reports Fever (100.7)
EENT: Reports No Symptoms Reported
Respiratory: Reports No Symptoms
Cardiac: Reports No Symptoms
Abdomen/GI: Reports No Symptoms
Skin: Reports No Symptoms
Neuro: Reports No Symptoms
Physical Exam
-
General: Well Developed, Well Nourished and No Apparent Distress
HEENT: Normocephalic, Atraumatic and Moist Mucous Membranes
Respiratory: Clear to Auscultation; Negative Wheezes, Rales or Rhonchi
Cardiac: Regular Rhythm and S1/S2
GI: Soft, Nontender and Nondistended
Musculoskeletal: No Clubbing, No Cyanosis and No Edema
Neuro: Awake, Alert and Oriented
--- NOTE | 2023-09-22 13:39 | W.PN.ID1 ---
Date of Service
Date of Service: September 22, 2023
Today's Communication
Continue abx.
Assessment / Plan
Babesiosis -
Lymphocyte predominant Hodgkin lymphoma (currently in remission)
Thrombocytopenia
Hyponatremia
Mild transaminitis
Recommendations:
Continue azithromycin/atovaquone - likely for a 10 day course.
- QTc 447 on 09/20/23
- coinfections relatively common (lyme, ehrlichia, anaplasma) - currently on empiric therapy with doxycycline
- hyponatremia management per nephrology
- repeat peripheral smear in a.m. for parasite load pending.
- follow clinically
Chief Complaint
-: Other (babesiosis)
Subjective / Review of Systems
Review of Systems: No Fever and No Chills
Vital Signs / Physical Exam
Vital Signs
Vital Signs
Temp Pulse Resp BP Pulse Ox
97.8 F 61 18 94/57 99
09/22/23 12:00 09/22/23 12:00 09/22/23 12:00 09/22/23 12:00 09/22/23 12:00
Physical Exam
Constitutional: No Acute Distress, Well Developed and Comfortable
Head: Normocephalic
Eyes: Sclera Anicteric
Pulmonary: Non Labored
Gastrointestinal: Non Distended
Skin: Negative Rash or Jaundice
Neurological: Awake, Alert and AO x 3
Psychological: Calm
Objective Data
Lab Data
Lab Results
09/22/23 04:36
09/22/23 04:36
Estimated Creat Clear > 125 ml/min 09/22/23 04:36
Lactic Acid Cancelled 09/18/23 13:45
Total Bilirubin 3.4 mg/dl (0.2-1.3) H 09/19/23 04:31
AST 97 U/L (17-59) H 09/19/23 04:31
ALT 35 U/L (0-50) 09/19/23 04:31
Alkaline Phosphatase 67 U/L (38-126) 09/19/23 04:31
Most recent labs reviewed.
Micro Results:
09/18/23 09:52 Blood Culture - Preliminary
Blood/Venous No Growth in 4 days- Final report to follow
09/21/23 07:57 Blood Parasites Smear - Final
Blood/Venous Babesia species - 3.6%
09/18/23 12:46 Urine Culture - Final
Urine NO GROWTH
09/18/23 22:03 Blood Parasites Smear - Final
Blood/Venous Babesia species - 7.3%
09/18/23 09:52 Influenza Types A & B (LON) - Final
Nasal Swab Negative for Influenza A & B, NAAT
Negative results must be combined with clinical observations
and patient history.
Nucleic Acid Amplification test (NAAT)performed on the
[employer] platform.
[2023-09-22 15:49] VITALS: BP 124/72
[2023-09-22] MEDS: LOVENOX 40 MG SC (17:35)
[2023-09-22 19:10] VITALS: BP 135/73
[2023-09-22 23:00] VITALS: BP 111/60
[2023-09-23 03:00] VITALS: BP 114/73
[2023-09-23 05:35] LABS: Hematocrit 29.6 % (39.0-52.0); Hemoglobin 10.4 g/dL (13.0-18.0); Mean Corp Hgb Conc. 35.1 g/dL (33.0-37.0); Mean Corpuscular Hgb 30.9 pg (27.0-31.0); Mean Corpuscular Volume 87.8 fL (80.0-94.0); Mean Platelet Volume 12.5 fL (7.4-10.4); Platelet Count 167 10^3/uL (130-400); Red Blood Cell Count 3.37 10^6/uL (4.70-6.10); Red Cell Dist. Width 14.9 % (11.5-14.5); White Blood Cell Count 7.6 10^3/uL (4.8-10.8)
[2023-09-23 05:47] LABS: Blood Urea Nitrogen 11 mg/dl (9-20); Calcium 7.6 mg/dl (8.4-10.2); Carbon Dioxide 34 mmol/L (22-30); Chloride 95 mmol/L (98-107); Estimated Creatinine Clearance > 125 ml/min; Glucose 110 mg/dl (70-99); Potassium 3.7 mmol/L (3.5-5.1); Sodium 129 mmol/L (135-145); eGFR > 60.00
[2023-09-23 07:13] LABS: Absolute Neutrophils -Man Diff 4.7 10^3/uL (1.4-6.5); Band Neutrophils 4 % (0-3); Segmented Neutrophils 59 % (42-75)
[2023-09-23 07:14] LABS: Anisocytosis Slight; Eosinophils 1 % (0-6); Lymphocytes 20 % (20-51); Monocytes 16 % (2-9); Normal RBC Morphology No; Platelets Checked Yes; Polychromasia Slight; Total Cells Counted 100
[2023-09-23 07:25] VITALS: BP 129/72
[2023-09-23] MEDS: ZESTRIL 20 MG PO (07:49)
[2023-09-23] MEDS: MEPRON SUSPENSION 750 MG PO ×2 (07:49→18:39)
[2023-09-23] MEDS: TRANDATE 100 MG PO (07:50)
[2023-09-23] MEDS: ZITHROMAX 500 MG PO (07:50)
[2023-09-23] MEDS: VIBRAMYCIN 100 MG PO ×2 (07:52→18:39)
[2023-09-23] MEDS: PEPCID 20 MG PO (07:52)
[2023-09-23 11:13] VITALS: BP 107/62
--- NOTE | 2023-09-23 14:43 | W.PN.NEPH.PH ---
Today's Communication / Plan
-
cont FR, BMP in 1week
Assessment/Plan
-
Assessment:
History of Hodgkin's lymphoma
hyponatremia
HTN
Elevated BUN and LFTs
Hypokalemia
Plan
Hyponatremia in setting of Babesiosa, HCTZ use, low solute intake
U osmo high 390, U na low
Stop hydrochlorothiazide indefinitely
Sodium better with samsca, redose if he is still here today
encouraged patient to increase solute/protein intake
maintain FR 48ounces/day
BP stable on ACEI and BB
abx per ID
ok to d/c per renal, need BMP on Friday
f/u wiht PCP
d/w pt in detail
-
-
Date of Service: September 23, 2023
CC / HPI / ROS
-
Chief Complaint:
hyponatremia
History of Present Illness:
sodium upto 129, BP stable
low grade fevers improved
Review of Systems:
no pain, feels well
no dizziness, improving appetite
Labs
-
Labs:
WBC 7.6 10^3/uL (4.8-10.8) 09/23/23 04:52
RBC 3.37 10^6/uL (4.70-6.10) L 09/23/23 04:52
Hgb 10.4 g/dL (13.0-18.0) L 09/23/23 04:52
Hct 29.6 % (39.0-52.0) L 09/23/23 04:52
Plt Count 167 10^3/uL (130-400) 09/23/23 04:52
Sodium 129 mmol/L (135-145) L 09/23/23 04:51
Potassium 3.7 mmol/L (3.5-5.1) 09/23/23 04:51
Chloride 95 mmol/L (98-107) L 09/23/23 04:51
Carbon Dioxide 34 mmol/L (22-30) H 09/23/23 04:51
BUN 11 mg/dl (9-20) 09/23/23 04:51
Creatinine 0.7 mg/dL (0.7-1.3) 09/23/23 04:51
eGFR > 60.00 09/23/23 04:51
Glucose 110 mg/dl (70-99) H 09/23/23 04:51
Calcium 7.6 mg/dl (8.4-10.2) L 09/23/23 04:51
Phosphorus 2.8 mg/dl (2.5-4.5) 09/19/23 09:54
Albumin 2.8 g/dl (3.5-5.0) L 09/19/23 04:31
Physical Exam
-
Vital Signs:
Vital Signs
Temp Pulse Resp BP Pulse Ox
98.1 F 67 18 107/62 97
09/23/23 11:13 09/23/23 11:13 09/23/23 11:13 09/23/23 11:13 09/23/23 11:13
Cardiovascular:: Regular rate and rhythm
Respiratory:: Bilateral: CTA
Lung Excursion:: Normal
Abdomen:: Nontender and Soft
Extremity Edema:: None: Bilateral:
Argueta Catheter: No
[2023-09-23 14:54] VITALS: BP 122/68
--- NOTE | 2023-09-23 16:25 | CM ---
Patient seen bedside.
IMM completed.
Plan: patient for d/c home today, no needs.
[2023-09-23] MEDS: LOVENOX SC (16:30)
--- NOTE | 2023-09-23 17:02 | W.PN.ID1 ---
Date of Service
Date of Service: September 23, 2023
Today's Communication
Continue azithromycin/atovaquone - for a 14 day course given persistent fevers - called in scripts for all three antibiotics to his pharmacy, if they are not able to special order then patient may need to drive to alternative pharmacy to bead picker the
atovaquone
Assessment / Plan
Babesiosis -
Lymphocyte predominant Hodgkin lymphoma (currently in remission)
Thrombocytopenia
Hyponatremia
Mild transaminitis
Recommendations:
Continue azithromycin/atovaquone - for a 14 day course given persistent fevers - called in scripts for all three antibiotics to his pharmacy, if they are not able to special order then patient may need to drive to alternative pharmacy to bead picker the
atovaquone
- QTc 447 on 09/20/23
- coinfections relatively common (lyme, ehrlichia, anaplasma) - currently on empiric therapy with doxycycline
- hyponatremia management per nephrology
- parasitemia nearly resolved
- follow clinically
Chief Complaint
-: Other (babesiosis)
Subjective / Review of Systems
afebrile this AM, did have fevers last night
bp stable
without leukocytosis
anemia has stabilized
in good spirits
refuses to stay further
Vital Signs / Physical Exam
Vital Signs
Vital Signs
Temp Pulse Resp BP Pulse Ox
99.1 F 67 20 122/68 95
09/23/23 14:54 09/23/23 14:54 09/23/23 14:54 09/23/23 14:54 09/23/23 14:54
Physical Exam
Constitutional: No Acute Distress
Cardiovascular: Regular Rate and S1/S2; Negative Murmur or Rub
Pulmonary: Clear and Symmetric; Negative Wheezes or Rales
Gastrointestinal: Soft, Non Tender, Non Distended and Normal Bowel Sounds
Skin: Warm and Dry; Negative Rash or Jaundice
Lines: Port
Objective Data
Lab Data
Lab Results
09/23/23 04:52
09/23/23 04:51
Estimated Creat Clear > 125 ml/min 09/23/23 04:51
Lactic Acid Cancelled 09/18/23 13:45
Total Bilirubin 3.4 mg/dl (0.2-1.3) H 09/19/23 04:31
AST 97 U/L (17-59) H 09/19/23 04:31
ALT 35 U/L (0-50) 09/19/23 04:31
Alkaline Phosphatase 67 U/L (38-126) 09/19/23 04:31
Most recent labs reviewed.
Micro Results:
09/23/23 04:52 Blood Parasites Smear - Final
Blood/Venous Babesia species
09/18/23 09:52 Blood Culture - Final
Blood/Venous No Growth - Final Report
09/21/23 07:57 Blood Parasites Smear - Final
Blood/Venous Babesia species
09/18/23 12:46 Urine Culture - Final
Urine NO GROWTH
09/18/23 22:03 Blood Parasites Smear - Final
Blood/Venous Babesia species
09/18/23 09:52 Influenza Types A & B (LON) - Final
Nasal Swab Negative for Influenza A & B, NAAT
Negative results must be combined with clinical observations
and patient history.
Nucleic Acid Amplification test (NAAT)performed on the
[employer] platform.
--- NOTE | 2023-09-23 17:15 | W.PN.HOSP.TC ---
Today's Communication/Plan
-
dc today, will need close labs follow up
Assessment / Plan
Assessment / Plan
IMPRESSION:
68 years old male with history of Hodgkin lymphoma, hypertension, hyperlipidemia came with fever and hyponatremia, sodium level 119, infectious disease and nephrology consulted.
tested positive for Babesiosis, started on azithromycin/atovaquone/ doxycycline.
PLAN:
Na 119-->122-->127-->125-->129
in the ER sodium level 119.
Nephrology consulted. Input appreciated, they have cleared for dc
Serial BMP
HTCZ on hold.
Na at 127 s/p 3% saline
received dose of Samsca 09/21
Severe Babesiosis
patient still running fever but temp is lower compared to before.
Blood culture negative so far
Started on Zosyn in the ER discontinued
Doxycycline, Atovaquone, Azithromycin
Infectious disease consult appreciated
tested positive for Babesiosis,
repeat blood parasite peripheral smear remains positive
Anaplasma titers negative. Lyme screen neg and Ehlrichia neg
I reviewed with Dr. Sherman. Cleared for dc. She called in the prescriptions to [facility], pt will take dose of Atovaquone and Doxycycline tonight, then to be discharged.
history of Lymphocyte predominant Hodgkin lymphoma
Diagnosed on August 2021- (patient admitted back then with empyema, gram-negative bacteremia ,diffuse lymphadenopathy and splenomegaly)
Currently on remission, not currently on any treatment.
Follows oncology as outpatient.
Primary HTN
Continue home meds
stop hydrochlorothiazide
Hyperlipidemia.
Hold statin for now with elevated Bilirubin
Thrombocytopenia likely secondary to babesiosis versus lymphoma
significantly better
CODE STATUS: Full code
DVT prophylaxis: Lovenox
Diet: Regular diet
dc tonight
reviewed with in room, extensively discussed
2 visits, reviewed with Dr. Sherman
More than 30 minutes spent in discharge including
Final examination of the patient
Summarizing hospital stay
Instructions for continuing care to all relevant caregivers
Preparation of discharge records, prescriptions, and referral forms
Total time spent (in minutes): 45
Anticipated Discharge: Today
Subjective/Interval History
-
Date of Service: September 23, 2023
Feeling better and really wants to go home tonight
Objective Data
-
Labs:
Laboratory Results
09/23/23 09/23/23
04:51 04:52
WBC 7.6
Hgb 10.4 L
Hct 29.6 L
Plt Count 167
Sodium 129 L
Potassium 3.7
Chloride 95 L
Carbon Dioxide 34 H
BUN 11
Creatinine 0.7
Glucose 110 H
Calcium 7.6 L
Vital Signs:
Vital Signs
Temp Pulse Resp BP Pulse Ox
99.1 F 67 20 122/68 95
09/23/23 14:54 09/23/23 14:54 09/23/23 14:54 09/23/23 14:54 09/23/23 14:54
I&O
09/22/23 09/23/23 09/24/23
06:59 06:59 06:59
Intake Total 1090 / 1090 240 / 240
Balance 1090 / 1090 240 / 240
Review of Systems
-
History Source: Patient and Family ( in room)
Constitutional: Reports Fever (Tmax 101.2)
EENT: Reports No Symptoms Reported
Respiratory: Reports No Symptoms
Cardiac: Reports No Symptoms
Abdomen/GI: Reports No Symptoms
Skin: Reports No Symptoms
Neuro: Reports No Symptoms
Physical Exam
-
General: Well Developed, Well Nourished and No Apparent Distress
HEENT: Normocephalic, Atraumatic and Moist Mucous Membranes
Respiratory: Clear to Auscultation; Negative Wheezes, Rales or Rhonchi
Cardiac: Regular Rhythm and S1/S2
GI: Soft, Nontender and Nondistended
Musculoskeletal: No Clubbing, No Cyanosis and No Edema
Neuro: Awake, Alert and Oriented
--- NOTE | 2023-09-24 07:43 | W.DS.TRANS ---
DC Summary - [facility]
-
Discharge Instructions:
Discharge Diagnosis/Procedures Babesiosis
Diet Low Sodium,Restrict fluids to 64 oz
Activity No strenuous activity
Driving Restrictions Not until seen by your Dr
Bathing Restrictions None
Blood Work CBC, CMP on Thursday 09/28
Instructions:
Stand-Alone Forms:
Changes to Home Medications: Yes
Discharge Medications:
DC Medications w/original date entered in [facility]
labetalol 100 mg tablet 100 mg PO DAILY Blood pressure 09/15/21
lisinopril 20 mg tablet 20 mg PO DAILY Blood Pressure 09/18/23
therapeutic multivitamin 1 tab PO DAILY Supplement 09/18/23
atovaquone 750 mg/5 mL oral suspension 750 mg (5 mL) PO Q12 #0 mL 09/23/23
azithromycin 250 mg tablet 500 mg (2 x 250 mg) PO DAILY #0 tabs 09/23/23
doxycycline hyclate 100 mg capsule 100 mg PO Q12 #0 caps 09/23/23
Home Medication Changes
Atovaquone, Azithromycin and Doxycycline added for 9 days
HCTZ and Atorvastatin stopped. HCTZ indefinitely and
decision on timing of resumption of Atorvastatin will be pending
labs and reevaluation by PCP
Pending Results: No
== END 2023-09-23 18:57 | disposition home or self-care (01) | DRG 868 ==
LOC: 4 WEST ACU 12:08
PROVIDERS: Physician Assistant; Student in an Organized Health Care Education/Training Program; ADMITTING PHYSICIAN General Practice; ATTENDING PHYSICIAN Internal Medicine; CONSULT PHYSICIAN Internal Medicine Infectious Disease; CONSULT PHYSICIAN Specialist; EMERGENCY PHYSICIAN Emergency Medicine; FAMILY PHYSICIAN Family Medicine
DX: B60.00 Babesiosis, unspecified (principal); E87.1 Hypo-osmolality and hyponatremia; I10 Essential (primary) hypertension; E78.00 Pure hypercholesterolemia, unspecified; D69.6 Thrombocytopenia, unspecified; R74.01 Elevation of levels of liver transaminase levels; E87.6 Hypokalemia; Z85.71 Personal history of Hodgkin lymphoma
CPT/HCPCS: 71046; 74177; 80048; 80053; 81003; 81015; 82248; 82570; 83605; 83690; 83735; 83930; 83935; 84100; 84300; 85025; 85027; 86618; 86666; 86803; 87015; 87040; 87086; 87207; 87502; 87811; 93005; 96360; 99285; Q9967

== ENCOUNTER → 2023-09-29 09:30 | Outpatient (REF) | payer OTHER, MEDICARE, SELFPAY ==
[2023-09-29 10:50] LABS: Hematocrit 33.7 % (39.0-52.0); Hemoglobin 11.2 g/dL (13.0-18.0); Mean Corp Hgb Conc. 33.2 g/dL (33.0-37.0); Mean Corpuscular Volume 96.3 fL (80.0-94.0); Mean Platelet Volume 10.8 fL (7.4-10.4); Platelet Count 189 10^3/uL (130-400); Red Cell Dist. Width 18.1 % (11.5-14.5); White Blood Cell Count 8.1 10^3/uL (4.8-10.8)
[2023-09-29 10:56] LABS: Urine Albumin Negative (Neg - Trace); Urine Bilirubin Negative (Negative); Urine Character Clear (Clear); Urine Color Yellow; Urine Glucose Negative (Negative); Urine Ketone Negative (Negative); Urine Leukocyte Negative (Negative); Urine Nitrite Negative (Negative); Urine Occult Blood Negative (Negative); Urine Specific Gravity 1.005 (<1.030); Urine Urobilinogen Negative (Neg - 1+)
[2023-09-29 11:10] LABS: % Basophils 1.5 % (0-2); % Eosinophils 0.5 % (0-6); % Immature Granulocytes 1.4 % (0-0.5); % Lymphocytes 52.2 % (20.5-51.1); % Monocytes 18.6 % (1.7-9.3); % Neutrophils 25.8 % (42.2-75.2); Absolute Basophils 0.1 10^3/uL (0-0.2); Absolute Immature Granulocytes 0.1 10^3/uL (0-0.05); Absolute Lymphocytes 4.2 10^3/uL (1.2-3.4); Absolute Monocytes 1.5 10^3/uL (0.1-0.6); Absolute Neutrophils 2.1 10^3/uL (1.4-6.5); Nucleated Red Blood Cells % 0.2 % (-)
[2023-09-29 11:11] LABS: ALT (SGPT) 24 U/L (0-50); AST (SGOT) 44 U/L (17-59); Albumin 3.6 g/dl (3.5-5.0); Alkaline Phosphatase 82 U/L (38-126); Blood Urea Nitrogen 12 mg/dl (9-20); Calcium 9.2 mg/dl (8.4-10.2); Carbon Dioxide 28 mmol/L (22-30); Chloride 102 mmol/L (98-107); Glucose 98 mg/dl (70-99); LDH 703 U/L (120-246); Potassium 4.5 mmol/L (3.5-5.1); Sodium 134 mmol/L (135-145); Total Bilirubin 1.6 mg/dl (0.2-1.3); eGFR > 60.00
[2023-09-29 11:18] LABS: Erythrocyte Sed Rate 53 mm/hour (0-20)
[2023-09-29 11:27] LABS: Procalcitonin 0.51 ng/ml (0.0-0.25)
[2023-09-29 14:17] LABS: Lyme Antibody Screen, EIA Negative (Negative)
[2023-09-30 00:39] LABS: Hepatitis A IgM Antibody Negative (Negative); Hepatitis B Core Ab, IgM Negative (Negative)
[2023-09-30 00:50] LABS: Hepatitis B Core Ab, Total Negative (Negative); Hepatitis C Antibody Negative (Negative)
[2023-09-30 01:04] LABS: Hepatitis A Antibody, Total Negative (Negative)
== END ==
LOC: REG 09:30
PROVIDERS: ATTENDING PHYSICIAN Family Medicine
DX: Z85.72 Personal history of non-Hodgkin lymphomas (principal); R50.9 Fever, unspecified; R53.83 Other fatigue
CPT/HCPCS: 36415; 80053; 81003; 82728; 83615; 84145; 85025; 85652; 86140; 86618; 86704; 86705; 86708; 86709; 86803; 87040

== ENCOUNTER → 2023-10-06 10:30 | Outpatient (REF) | payer OTHER, MEDICARE, SELFPAY ==
[2023-10-06 10:56] LABS: Hematocrit 37.3 % (39.0-52.0); Hemoglobin 12.2 g/dL (13.0-18.0); Mean Corp Hgb Conc. 32.7 g/dL (33.0-37.0); Mean Corpuscular Hgb 32.4 pg (27.0-31.0); Mean Corpuscular Volume 98.9 fL (80.0-94.0); Mean Platelet Volume 10.2 fL (7.4-10.4); Platelet Count 157 10^3/uL (130-400); Red Blood Cell Count 3.77 10^6/uL (4.70-6.10); White Blood Cell Count 7.7 10^3/uL (4.8-10.8)
[2023-10-06 11:02] LABS: ALT (SGPT) 22 U/L (0-50); AST (SGOT) 40 U/L (17-59); Alkaline Phosphatase 80 U/L (38-126); Blood Urea Nitrogen 9 mg/dl (9-20); Calcium 9.5 mg/dl (8.4-10.2); Chloride 106 mmol/L (98-107); Glucose 129 mg/dl (70-99); LDH 519 U/L (120-246); Potassium 4.5 mmol/L (3.5-5.1); Sodium 138 mmol/L (135-145); Total Bilirubin 1.3 mg/dl (0.2-1.3); Total Protein 6.3 g/dl (6.3-8.2); eGFR > 60.00
[2023-10-06 11:13] LABS: Carbon Dioxide 24 mmol/L (22-30)
[2023-10-06 11:45] LABS: % Basophils 1.4 % (0-2); % Immature Granulocytes 0.9 % (0-0.5); % Lymphocytes 48.8 % (20.5-51.1); % Monocytes 17.6 % (1.7-9.3); % Neutrophils 30.3 % (42.2-75.2); Absolute Basophils 0.1 10^3/uL (0-0.2); Absolute Eosinophils 0.1 10^3/uL (0-0.7); Absolute Immature Granulocytes 0.1 10^3/uL (0-0.05); Absolute Lymphocytes 3.7 10^3/uL (1.2-3.4); Absolute Monocytes 1.4 10^3/uL (0.1-0.6); Absolute Neutrophils 2.3 10^3/uL (1.4-6.5); Nucleated Red Blood Cells % 0.3 % (-)
== END ==
LOC: OIDL 10:30
PROVIDERS: ATTENDING PHYSICIAN Internal Medicine Hematology & Oncology
DX: C81.94 Hodgkin lymphoma, unspecified, lymph nodes of axilla and upper limb (principal)
CPT/HCPCS: 80053; 83615; 85025

== ENCOUNTER → 2023-10-25 11:49 | Outpatient (REF) | payer OTHER, MEDICARE, SELFPAY | LOC: REG 11:49 | PROVIDERS: ATTENDING PHYSICIAN Student in an Organized Health Care Education/Training Program; FAMILY PHYSICIAN Family Medicine | DX: B60.00 Babesiosis, unspecified (principal); R94.8 Abnormal results of function studies of other organs and systems | CPT/HCPCS: 36415; 87015; 87207 ==

== ENCOUNTER → 2023-12-24 06:15 | Day surgery (SDC) | payer OTHER, MEDICARE, SELFPAY | LOC: GI 06:15 | PROVIDERS: ATTENDING PHYSICIAN Internal Medicine | DX: Z12.11 Encounter for screening for malignant neoplasm of colon (principal); R19.5 Other fecal abnormalities; K64.8 Other hemorrhoids; K57.30 Diverticulosis of large intestine without perforation or abscess without bleeding; Z53.8 Procedure and treatment not carried out for other reasons | CPT/HCPCS: G0121 ==

== ENCOUNTER → 2023-12-31 06:16 | Day surgery (SDC) | payer OTHER, MEDICARE, SELFPAY | LOC: GI 06:16 | PROVIDERS: ATTENDING PHYSICIAN Internal Medicine; FAMILY PHYSICIAN Family Medicine | DX: Z12.11 Encounter for screening for malignant neoplasm of colon (principal); R19.5 Other fecal abnormalities; K62.1 Rectal polyp; Q43.8 Other specified congenital malformations of intestine | CPT/HCPCS: 45380; 88305 ==

== ENCOUNTER → 2024-10-04 12:01 | Outpatient (REF) | payer OTHER, MEDICARE, SELFPAY ==
[2024-10-04 13:37] LABS: Hematocrit 44.4 % (39.0-52.0); Hemoglobin 15.2 g/dL (13.0-18.0); Mean Corp Hgb Conc. 34.2 g/dL (33.0-37.0); Mean Corpuscular Volume 95.1 fL (80.0-94.0); Nucleated Red Blood Cells % 0 % (-); Platelet Count 203 10^3/uL (130-400); Red Cell Dist. Width 12.1 % (11.5-14.5)
[2024-10-04 14:04] LABS: ALT (SGPT) 111 U/L (0-50); AST (SGOT) 86 U/L (17-59); Albumin 4.6 g/dl (3.5-5.0); Alkaline Phosphatase 67 U/L (38-126); Blood Urea Nitrogen 16 mg/dl (9-20); Calcium 9.4 mg/dl (8.4-10.2); Carbon Dioxide 25 mmol/L (22-30); Chloride 104 mmol/L (98-107); Glucose 91 mg/dl (70-99); Potassium 4.5 mmol/L (3.5-5.1); Sodium 137 mmol/L (135-145); Total Protein 7.1 g/dl (6.3-8.2); Uric Acid 7.6 mg/dl (3.5-8.5); eGFR > 60.00
[2024-10-04 18:53] LABS: Hepatitis B Surface Antigen Negative (Negative)
== END ==
LOC: REG 12:01
PROVIDERS: ATTENDING PHYSICIAN Internal Medicine Hematology & Oncology; FAMILY PHYSICIAN Family Medicine
DX: C81.94 Hodgkin lymphoma, unspecified, lymph nodes of axilla and upper limb (principal)
CPT/HCPCS: 36415; 80053; 84550; 85025; 86704; 86706; 87340

== ENCOUNTER → 2024-10-15 11:39 | Outpatient (REF) | payer OTHER, MEDICARE, SELFPAY ==
[2024-10-15 12:22] LABS: Hematocrit 46.4 % (39.0-52.0); Hemoglobin 15.9 g/dL (13.0-18.0); Mean Corp Hgb Conc. 34.3 g/dL (33.0-37.0); Mean Corpuscular Volume 93.7 fL (80.0-94.0); Nucleated Red Blood Cells % 0 % (-); Platelet Count 192 10^3/uL (130-400); Red Cell Dist. Width 12.2 % (11.5-14.5)
[2024-10-15 13:18] LABS: ALT (SGPT) 119 U/L (0-50); AST (SGOT) 93 U/L (17-59); Albumin 4.7 g/dl (3.5-5.0); Alkaline Phosphatase 66 U/L (38-126); Blood Urea Nitrogen 14 mg/dl (9-20); Calcium 9.6 mg/dl (8.4-10.2); Carbon Dioxide 28 mmol/L (22-30); Chloride 104 mmol/L (98-107); Glucose 140 mg/dl (70-99); Potassium 4.3 mmol/L (3.5-5.1); Sodium 140 mmol/L (135-145); Total Protein 7.4 g/dl (6.3-8.2); eGFR > 60.00
== END ==
LOC: REG 11:39
PROVIDERS: ATTENDING PHYSICIAN Internal Medicine Hematology & Oncology; FAMILY PHYSICIAN Family Medicine
DX: C81.94 Hodgkin lymphoma, unspecified, lymph nodes of axilla and upper limb (principal)
CPT/HCPCS: 36415; 80053; 85025

== ENCOUNTER → 2024-10-25 10:03 | Outpatient (REF) | payer OTHER, MEDICARE, SELFPAY ==
[2024-10-25 10:34] LABS: Hematocrit 44.9 % (39.0-52.0); Hemoglobin 15.5 g/dL (13.0-18.0); Mean Corp Hgb Conc. 34.5 g/dL (33.0-37.0); Mean Corpuscular Volume 94.7 fL (80.0-94.0); Nucleated Red Blood Cells % 0 % (-); Platelet Count 187 10^3/uL (130-400); Red Cell Dist. Width 12.1 % (11.5-14.5)
[2024-10-25 10:45] LABS: ALT (SGPT) 95 U/L (0-50); AST (SGOT) 70 U/L (17-59); Albumin 4.6 g/dl (3.5-5.0); Alkaline Phosphatase 65 U/L (38-126); Blood Urea Nitrogen 13 mg/dl (9-20); Calcium 9.5 mg/dl (8.4-10.2); Carbon Dioxide 27 mmol/L (22-30); Chloride 105 mmol/L (98-107); Glucose 134 mg/dl (70-99); Potassium 4.3 mmol/L (3.5-5.1); Sodium 138 mmol/L (135-145); Total Protein 7.4 g/dl (6.3-8.2); eGFR > 60.00
== END ==
LOC: OIDL 10:03
PROVIDERS: ATTENDING PHYSICIAN Internal Medicine Hematology & Oncology
DX: C81.94 Hodgkin lymphoma, unspecified, lymph nodes of axilla and upper limb (principal)
CPT/HCPCS: 80053; 85025

== ENCOUNTER → 2024-10-30 10:55 | Outpatient (REF) | payer OTHER, SELFPAY ==
[2024-10-30 12:24] LABS: Hematocrit 43.6 % (39.0-52.0); Hemoglobin 15.0 g/dL (13.0-18.0); Mean Corp Hgb Conc. 34.4 g/dL (33.0-37.0); Mean Corpuscular Volume 95.2 fL (80.0-94.0); Nucleated Red Blood Cells % 0 % (-); Platelet Count 168 10^3/uL (130-400); Red Cell Dist. Width 11.9 % (11.5-14.5)
[2024-10-30 13:47] LABS: ALT (SGPT) 84 U/L (0-50); AST (SGOT) 58 U/L (17-59); Albumin 4.4 g/dl (3.5-5.0); Alkaline Phosphatase 60 U/L (38-126); Blood Urea Nitrogen 17 mg/dl (9-20); Calcium 9.4 mg/dl (8.4-10.2); Carbon Dioxide 27 mmol/L (22-30); Chloride 105 mmol/L (98-107); Glucose 101 mg/dl (70-99); Potassium 3.8 mmol/L (3.5-5.1); Sodium 138 mmol/L (135-145); Total Protein 7.0 g/dl (6.3-8.2); eGFR > 60.00
== END ==
LOC: REG 10:55
PROVIDERS: ATTENDING PHYSICIAN Internal Medicine Hematology & Oncology; FAMILY PHYSICIAN Family Medicine
DX: C81.94 Hodgkin lymphoma, unspecified, lymph nodes of axilla and upper limb (principal)
CPT/HCPCS: 36415; 80053; 85025